=== PATIENT | female | born 1980 | race Caucasian/White ===

== ENCOUNTER 2023-12-04 08:47 | Inpatient (IN) | payer BC, SELFPAY ==
[2023-12-04] VITALS (11 sets, daily range): BP systolic 103–121; BP diastolic 55–84; PULSE 59–80; RESP 14–18; TEMP 36.3–37.3; O2SAT 96–100; BMI 23.6; BMI 25.1
--- NOTE | ~2023-12-04 | CT_ITS ---
EXAMINATION: CT ABDOMEN AND PELVIS WITH CONTRAST CLINICAL INFORMATION: Loose stool, pain, and distention aerated history of previous surgery. COMPARISON: Previous CT of the abdomen and pelvis most recent November 2019 TECHNIQUE: Multidetector volumetric images were obtained from the superior aspect of the liver through the pubic symphysis following administration 85 mL of Omnipaque 350 intravenous contrast. Sagittal and coronal reformatted images were obtained on the technologist's workstation. Oral contrast: Yes This CT examination was performed using dose optimization techniques as appropriate, variously including the following: *Automated exposure control *Adjustment of mA and/or kV according to patient size (this includes techniques or standardized protocols for targeted exams where dose is matched to indication/reason for exam; i.e. extremities or head) *Use of iterative reconstruction technique DLP: 388 mGy-cm FINDINGS: LUNG BASES: The visualized lung bases are unremarkable. LIVER, GALLBLADDER, AND BILIARY TREE: The liver is normal in size, shape, and attenuation. No focal hepatic lesion or biliary ductal dilatation is present. The gallbladder is unremarkable with no evidence of radiopaque gallstones, gallbladder wall thickening, or obvious pericholecystic inflammatory changes. PANCREAS: Unremarkable. SPLEEN: Unremarkable. ADRENAL GLANDS: Unremarkable. KIDNEYS AND URETERS: The kidneys are normal in size, shape, and attenuation. No hydronephrosis, hydroureter, or calculi seen. No perinephric stranding. BLADDER: Unremarkable. GASTROINTESTINAL TRACT: Postsurgical changes to the sigmoid colon. There is question of mild wall thickening of the distal colon and rectum/oh proctocolitis. The small and large bowel are otherwise unremarkable. The base of the appendix is normal in caliber and filled with air. The tip of the appendix appears dilated measuring up to 1.3 cm does not contain 8 year and is high in attenuation or enhancing. There is a small amount of surrounding fluid. Appearance is questionable for appendicitis of the tip of the appendix versus enhancing mass. ABDOMINAL WALL: No significant hernia is appreciated. LYMPH NODES: Normal. VASCULAR: Unremarkable. PELVIC VISCERA: There is a small amount of fluid in the pelvis. Uterus and adnexa appear unremarkable. OSSEOUS STRUCTURES: Degenerative changes of the spine. CT/CT abdomen pelvis w IV con IMPRESSION: Abnormal appearance to the tip of the appendix. Small amount of fluid surrounding the appendix and in the pelvis. Question appendicitis of the tip of the appendix versus enhancing mass. Question mild wall thickening of the distal colon and rectum/proctocolitis. Postsurgical changes to the sigmoid colon. Fleischner guidelines were followed. Findings will be communicated by the [place] workflow flight inspector.
--- NOTE | 2023-12-04 09:17 | ED_ITS ---
HPI - Abdominal Pain General Chief Complaint: Abdominal Pain Stated Complaint: intestinal problems Time Seen by Provider: 12/04/23 09:00 Source: patient and old records reviewed Mode of arrival: ambulatory Limitations: no limitations History of Present Illness ED Provider: JERSEY ARZOLA narrative: 43 yo female with PMH of sigmoid volvulus back in 2019 that was initially treated here with gastrograffin enema and she was discharged home she notes she went to [facility] after discharge and was brought to the OR after presenting to the ED and was treated with surgery and had 8cm resection of colon. She has done well since then until 4 days ago with nausea, loose stools, distention and pain. She is worried as it feels the same to her prior episode. She has not been on any antibiotics recently MD elicited complaint: abdominal pain Pertinent past history: other (colon resection 2019 for sigmoid volvulua) Onset (ago): day(s) (4) Pain Consistency: intermittent Location: suprapubic Severity: severe Quality: cramping and aching Radiation: none Migration to: no migration Exacerbating factors: eating and movement Relieving factors: nothing Context: history of similar episodes Associated symptoms: nausea and other (loose stools) Related Data Allergies Allergy/AdvReac Type Severity Reaction Status Date / Time cefaclor [From CECLOR] Allergy Unknown HIVES Verified 12/04/23 08:54 ceclor Allergy Unknown hives Uncoded 10/29/16 00:00 Review of Systems Review of Systems Constitutional : No Weight loss, No Fever, No Chills ENT/Mouth : No sore throat, No Rhinorrhea Eyes: No Swelling, No Redness Cardiovascular : No Chest Pain, No SOB, No Edema Respiratory : No Cough, No Sputum, No Wheezing Gastrointestinal : Positive Nausea, no Vomiting, no Diarrhea, positive abdominal Pain, No Hematochezia, No Melena Genitourinary : No Dysuria, No Urinary Frequency, No Hematuria, No Urgency Musculoskeletal : No joint pain, No Myalgias, No Joint Swelling Skin : No Skin Lesions, No rash Neuro : No Weakness, No Numbness, No Dizziness, No Headache Psych : No Anxiety/Panic, No Depression All other systems reviewed and are negative. [facility] Past Medical History Attestation statement: The following information was validated with the patient. Source: old records reviewed Medical History (Updated 12/04/23 @ 13:14 by Justine Franklin DO) C. difficile colitis IBS (irritable bowel syndrome) Sigmoid volvulus Surgical History S/P colon resection Social History Social History (Updated 12/04/23 @ 09:23 by Justine Franklin DO) Patient Tobacco Use Status: Never used Tobacco Advance Directives: No Advance Directives Information Provided: Yes Do you have a plan to hurt others: No Plan Physical Exam ED Vital Signs: Vital Signs - 24 hr 12/04/23 08:51 12/04/23 11:48 Temperature 97.7 F Pulse Rate 67 68 Respiratory Rate 18 16 Blood Pressure 121/84 114/80 Pulse Oximetry 100 100 Oxygen Delivery Method Room Air Room Air BMI result Body Mass Index 23.6 Appearance: Alert. Oriented X3. No acute distress. Eyes: Pupils equal, round and reactive to light. ENT: Pharynx normal. Neck: Normal inspection. Neck supple. CVS: Normal heart rate and rhythm. Pulses normal. Respiratory: No respiratory distress. Breath sounds normal. Abdomen: Soft and lower abdominal distention with ttp no rebound but she is very ttp Skin: Skin warm and dry. Normal skin color. Normal skin turgor. Extremities: No lower extremity edema. No calf ttp Neuro: Oriented X 3. No motor deficit. No sensory deficit. Medical Decision Making Medical Decision Making [facility] Narrative: 43 yo female with PMH of sigmoid volvulus back in 2019 s/p colon resection at [facility] here with c/o 4 days of nausea, bloating, loose stools and concerned she had a recurrence at this time given symptoms will need labs, CT scan with contrast to evaluate for inflammation, obstruction, mass, will refer to surgery and consult once imaging back. IVF, zofran and toradol ordered. Differential Diagnosis Differential Diagnoses: The differential diagnosis associated with the presentation includes IBS, SBO, ileus Admission/Observation Consideration of admission/observation: Escalation of care including admission/observation considered admit per Dr. Schmitz Consult Healthcare Provider Management of the patient was discussed with: House Detective message sent to Dr. Schmitz Lab Data [facility] Lab Attestation statement: I reviewed the patient's lab results. 12/04/23 09:15 12/04/23 09:15 Labs: Lab Results 12/04/23 Range/Units 09:15 WBC 4.6 L (4.8-10.8) X10*3/uL RBC 4.75 (4.20-5.50) X10*6/uL Hgb 13.5 (12.0-16.0) g/dl Hct 40.8 (37.0-47.0) % MCV 85.9 (80.0-98.0) fL MCH 28.4 (27.0-33.0) pg MCHC 33.1 (31.0-35.0) g/dl RDW 13.9 (11.0-16.0) % Plt Count 266 (160-400) X10*3/uL MPV 10.4 (9.4-12.3) fL Immature Gran % (Auto) 0.2 (0.0-0.4) % Neut % (Auto) 56.5 (45-73) % Lymph % (Auto) 27.8 (20-40) % Dolores % (Auto) 11.1 H (2-11) % Eos % (Auto) 3.5 (0-4) % Baso % (Auto) 0.9 (0-2) % Lymph # (Auto) 1.3 (1.2-4.9) X10*3/uL Dolores # (Auto) 0.5 (0.1-1.2) X10*3/uL Eos # (Auto) 0.2 (0.0-0.4) X10*3/uL Baso # (Auto) 0.0 (0.0-0.2) X10*3/uL Abs Immat Gran (auto) 0.01 (0.00-0.03) X10*3/uL Absolute Neuts (auto) 2.6 (2.0-8.3) x10*3/uL Absolute Nucleated RBC 0.000 (0.0-0.012) X10*3/uL Nucleated RBC % (auto) 0.0 (0.0-0.2) /100WBC Sodium 140 (135-145) mmol/L Potassium 4.1 (3.3-5.1) mmol/L Chloride 106 (96-108) mmol/L Carbon Dioxide 28 (22-29) mmol/L Anion Gap 10 L (12-20) BUN 15 (9-16) mg/dL Creatinine 0.68 (0.5-1.4) mg/dL Estim Creat Clear Calc 91.1 Estimated GFR > 60 Random Glucose 93 (60-115) mg/dL Lactic Acid 0.8 (0.5-2.0) mmol/L Calcium 8.8 (8.4-10.2) mg/dL Magnesium 2.1 (1.6-2.6) mg/dL Total Bilirubin 0.6 (0.0-1.0) mg/dL Direct Bilirubin 0.2 (0.0-0.5) mg/dL AST 22 (5-31) U/L ALT 19 (0-31) U/L Alkaline Phosphatase 42 (39-117) U/L Total Protein 6.5 (6.5-8.0) g/dL Albumin 3.9 (3.5-5.0) g/dL Lipase 38 (8-78) U/L Beta HCG, Quant < 2 mIU/mL Independent Interpretation I performed an independent interpretation of an: CT Scan Radiology Impression Discussion of test interpretation with radiology: I have reviewed the radiologist's reading. External Record Review External record reviewed: Inpatient record Medications Administered Generic Name Dose Route Start Last Admin Trade Name Freq PRN Reason Stop Dose Admin Sodium Chloride 1,000 mls @ 100 mls/hr 12/04/23 11:45 12/04/23 11:40 Ns IVCONT 100 mls/hr .Q10H JEAN-PIERRE Administration Discontinued Medications Generic Name Dose Route Start Last Admin Trade Name Freq PRN Reason Stop Dose Admin Sodium Chloride 1,000 mls @ 999 mls/hr 12/04/23 09:13 12/04/23 10:30 Ns IV 12/04/23 10:13 Infused .Q1H1M ONE Infusion Iohexol 85 ml 12/04/23 10:22 12/04/23 10:22 Iohexol 350 Mg/Ml 100 Ml Infus..Btl IV 12/04/23 10:23 85 ml ONCE ONE Administration Ketorolac Tromethamine 15 mg 12/04/23 09:13 12/04/23 09:22 Ketorolac Tromethamine 15 Mg/Ml Vial IVPUSH 12/04/23 09:14 15 mg ONCE ONE Administration Ondansetron HCl 4 mg 12/04/23 09:13 12/04/23 09:21 Ondansetron Hcl 4 Mg/2 Ml Vial IVPUSH 12/04/23 09:14 4 mg ONCE ONE Administration Discharge Plan Discharge Clinical Impression: Acute appendicitis Patient Disposition: Admitted As Inpatient Print Language: Rwandan
[2023-12-04 09:19] LABS: MANUAL DIFF FLAG NO
[2023-12-04 09:21] LABS: Basophils Percent Auto 0.9 % (0-2); Eosinophils Absolute Auto 0.2 X10*3/uL (0.0-0.4); Eosinophils Percent Auto 3.5 % (0-4); Hematocrit 40.8 % (37.0-47.0); Hemoglobin 13.5 g/dl (12.0-16.0); Imm Gran Abs Auto 0.01 X10*3/uL (0.00-0.03); Imm Gran Pct Auto 0.2 % (0.0-0.4); Lymphocytes Absolute Auto 1.3 X10*3/uL (1.2-4.9); Lymphocytes Percent Auto 27.8 % (20-40); Mean Corpuscular HGB Conc 33.1 g/dl (31.0-35.0); Mean Corpuscular Hemoglobin 28.4 pg (27.0-33.0); Mean Corpuscular Volume 85.9 fL (80.0-98.0); Mean Platelet Volume 10.4 fL (9.4-12.3); Monocytes Absolute Auto 0.5 X10*3/uL (0.1-1.2); Monocytes Percent Auto 11.1 % (2-11); Neutrophils Absolute Auto 2.6 x10*3/uL (2.0-8.3); Neutrophils Percent Auto 56.5 % (45-73); Platelet Count 266 X10*3/uL (160-400); Red Blood Count 4.75 X10*6/uL (4.20-5.50); Red Cell Distribution Width 13.9 % (11.0-16.0); White Blood Count 4.6 X10*3/uL (4.8-10.8)
[2023-12-04] MEDS: ondansetron HCL 4 MG/2 ML VIAL IVPUSH (09:21)
[2023-12-04] MEDS: Ketorolac Tromethamine 15 MG/ML VIAL IVPUSH (09:22)
[2023-12-04] MEDS: 0.9 % Sodium Chloride 1,000 ML 999 ML IV (09:22)
[2023-12-04 09:41] LABS: Lactic Acid 0.8 mmol/L (0.5-2.0)
[2023-12-04 09:52] LABS: Alanine Aminotransferase 19 U/L (0-31); Albumin Level 3.9 g/dL (3.5-5.0); Alkaline Phosphatase 42 U/L (39-117); Anion Gap 10 (12-20); Aspartate Amino Transferase 22 U/L (5-31); Bilirubin Direct 0.2 mg/dL (0.0-0.5); Bilirubin Total 0.6 mg/dL (0.0-1.0); Blood Urea Nitrogen 15 mg/dL (9-16); Calcium 8.8 mg/dL (8.4-10.2); Carbon Dioxide 28 mmol/L (22-29); Chloride 106 mmol/L (96-108); Creatinine Clr Calc Pharmacy 91.1; Estimated Glomerular Filt Rate > 60; Glucose Random 93 mg/dL (60-115); Lipase 38 U/L (8-78); Magnesium 2.1 mg/dL (1.6-2.6); Potassium 4.1 mmol/L (3.3-5.1); Sodium 140 mmol/L (135-145); Total Protein 6.5 g/dL (6.5-8.0)
[2023-12-04 10:04] LABS: HCG Quantitative < 2 mIU/mL
[2023-12-04] MEDS: iohexoL 350 MG/ML 100 ML INFUS..BTL 85 ML IV (10:22)
[2023-12-04] MEDS: 0.9 % Sodium Chloride 1,000 ML 100 ML IVCONT (11:40)
--- NOTE | 2023-12-04 13:05 | P.HPGS_ITS ---
History of Present Illness History of Present Illness Date of Service: 12/04/23 Chief complaint: Abdominal pain right lower quadrant Narrative: Shell Blevins is a 43 year old female presenting with complaints of abdominal pain in the lower abdomen. She has a prior history of a sigmoid volvulus and has previously undergone a laparoscopic colectomy following this volvulus Approximally 3 years ago at [facility]. She presents today with pain mainly in the right lower quadrant which he thought was similar to her prior pain and was actually concerned about a repeat volvulus. Workup in the emergency department revealed a normal WBC. CT abdomen and pelvis revealed possible inflammatory changes suggestive of colitis on the left side however the appendix was noted to be enlarged and inflamed at the tip suggestive of appendicitis. She denies nausea, vomiting, fever or chills. Review of Systems Review of Systems: Yes all other systems are reviewed and are negative Constitutional: Constitutional: Denies chills and Denies fever(s) Cardiovascular: Cardiovascular: Denies chest pain and Denies irregular heart rhythm Respiratory: Respiratory: Denies chest congestion, Denies cough and Denies wheezing Gastrointestinal: Gastrointestinal: Reports as per HPI, Reports abdominal pain, Reports loose stools, Denies nausea and Denies vomiting Allergic/Immunologic: Allergic/Immunologic: Denies wheezing PMFSH Past Medical History Medical History (Updated 12/04/23 @ 13:09 by Jose Cruz Schmitz MD) C. difficile colitis IBS (irritable bowel syndrome) Sigmoid volvulus Surgical History Surgical History S/P colon resection Social History Social History (Updated 12/04/23 @ 09:23 by Justine Franklin DO) Patient Tobacco Use Status: Never used Tobacco Advance Directives: No Advance Directives Information Provided: Yes Do you have a plan to hurt others: No Plan Meds Allergies Allergy/AdvReac Type Severity Reaction Status Date / Time cefaclor [From CECLOR] Allergy Unknown HIVES Verified 12/04/23 08:54 ceclor Allergy Unknown hives Uncoded 10/29/16 00:00 Active Medications: Current Medications Sodium Chloride (Ns) 1,000 mls @ 100 mls/hr IVCONT .Q10H JEAN-PIERRE Last Admin: 12/04/23 11:40 Dose: 100 mls/hr Physical Exam Vital Signs: Vital Signs: Last Vital Signs Temp 97.7 F 12/04/23 08:51 Pulse 68 12/04/23 11:48 Resp 16 12/04/23 11:48 BP 114/80 12/04/23 11:48 Pulse Ox 100 12/04/23 11:48 O2 Del Method Room Air 12/04/23 11:48 BMI result Body Mass Index 23.6 Const: General: cooperative and no acute distress Nutritional Appearance: well nourished Orientation/consciousness: patient oriented x3 Limitations: no limitations HEENT: Head: Yes normocephalic and Yes atraumatic Ears: hearing grossly normal bilaterally Resp: Effort & Inspection: normal respiratory effort, no audible wheezes, no cough and no respiratory distress Cardio: Jugular venous distension: no JVD GI: Inspection: Yes normal to inspection Palpation (GI): Soft to palpation, Tenderness to palpation present (GI) in the RLQ and at McBurney's point; Sterling's sign negative, no guarding and not rigid Percussion: Yes normal to percussion Auscultation: normal bowel sounds Rectal Exam - Female: deferred Skin: Other: Warm, dry, no rash Neuro: General: patient oriented x3 Extrem: General: Yes no clubbing, cyanosis or edema Results Results Labs: Short CBC 12/04/23 Range/Units 09:15 WBC 4.6 L (4.8-10.8) X10*3/uL Hgb 13.5 (12.0-16.0) g/dl Hct 40.8 (37.0-47.0) % Plt Count 266 (160-400) X10*3/uL BMP 12/04/23 09:15 Sodium 140 Potassium 4.1 Chloride 106 Carbon Dioxide 28 BUN 15 Creatinine 0.68 Calcium 8.8 Liver Function 12/04/23 Range/Units 09:15 Total Bilirubin 0.6 (0.0-1.0) mg/dL Direct Bilirubin 0.2 (0.0-0.5) mg/dL AST 22 (5-31) U/L ALT 19 (0-31) U/L Alkaline Phosphatase 42 (39-117) U/L Albumin 3.9 (3.5-5.0) g/dL Assessment and Plan (1) Acute appendicitis: Qualifiers: Acute appendicitis type: unspecified acute appendicitis type Qualified Code(s): K35.80 - Unspecified acute appendicitis Status: Acute Plan 43-year-old female patient with recent onset of abdominal pain in the right lower quadrant found to be tender in the right lower quadrant. Workup revealed a normal WBC however CT abdomen and pelvis revealed a dilated appendiceal tip suggestive of a appendicitis. We discussed the options of treatment with antibiotics verses laparoscopic possible open appendectomy. After discussion of the procedure, risks, and alternatives, she consents to a laparoscopic or possible open appendectomy. She has been added onto the operative schedule for today. Quality Stroke Does the patient have a stroke diagnosis?: No VTE Prior VTE?: No VTE Risk Level:: Surgical - low VTE Device Contraindication: N/A - Device Ordered VTE Drug Contraindication: Treatment Not Indicated Procedures Date of Service Date of Service: 12/04/23
[2023-12-04] MEDS: Piperacillin Sodium/Tazobactam 3.375 GM in 0.9 % Sodium Chloride 50 ML IV (13:39)
--- NOTE | 2023-12-04 13:42 | HO.ANESPROP2 ---
[facility] Active Problems Active Problems: All Active Problems Acute appendicitis (Acute) Past Medical History Medical History C. difficile colitis IBS (irritable bowel syndrome) Sigmoid volvulus Surgical History Surgical History S/P colon resection History of Problems with Anesthesia: No Social History Social History Patient Tobacco Use Status: Never used Tobacco Second Hand Smoke Exposure: No Use of substances other than those prescribed or required for medical reasons: No Are you DNR?: No Advance Directives: No Advance Directives Information Provided: Yes Advance Directives on File: No Do you have a plan to hurt others: No Plan Meds Allergies Allergy/AdvReac Type Severity Reaction Status Date / Time cefaclor [From CECLOR] Allergy Unknown HIVES Verified 12/04/23 08:54 ceclor Allergy Unknown hives Uncoded 10/29/16 00:00 Active Medications: Current Medications Hydromorphone HCl (Hydromorphone Hcl 0.5 Mg/0.5 Ml Syringe) 0.5 mg IVPUSH Q3H PRN; Protocol PRN Reason: Pain, Severe (Pain Scale 7-10) Sodium Chloride (Ns) 1,000 mls @ 100 mls/hr IVCONT .Q10H JEAN-PIERRE Last Admin: 12/04/23 11:40 Dose: 100 mls/hr Lactated Ringer's (Lr) 1,000 mls @ 100 mls/hr IVCONT .Q10H JEAN-PIERRE Acetaminophen (Ofirmev) 1,000 mg in 100 mls @ 400 mls/hr IV Q6H [facility] Stop: 12/05/23 07:29 Piperacillin Sod/Tazobactam (Sod 3.375 gm/ Sodium Chloride) 50 mls @ 100 mls/hr IV Q6H JEAN-PIERRE Last Admin: 12/04/23 13:39 Dose: 100 mls/hr Ondansetron HCl (Ondansetron Hcl 4 Mg/2 Ml Vial) 4 mg IVPUSH QID PRN PRN Reason: Nausea Exam Height,Weight and Vital Signs: Height 5 ft 4 in Weight 62.4 kg Last Vital Signs Temp 97.7 F 12/04/23 08:51 Pulse 68 12/04/23 11:48 Resp 16 12/04/23 11:48 BP 114/80 12/04/23 11:48 Pulse Ox 100 12/04/23 11:48 O2 Del Method Room Air 12/04/23 11:48 Pertinent Lab Results Pertinent Lab Results: Laboratory Tests 12/04/23 09:15 WBC 4.6 L RBC 4.75 Hgb 13.5 Hct 40.8 MCV 85.9 MCH 28.4 MCHC 33.1 RDW 13.9 Plt Count 266 MPV 10.4 Immature Gran % (Auto) 0.2 Neut % (Auto) 56.5 Lymph % (Auto) 27.8 Cecil % (Auto) 11.1 H Eos % (Auto) 3.5 Baso % (Auto) 0.9 Lymph # (Auto) 1.3 Cecil # (Auto) 0.5 Eos # (Auto) 0.2 Baso # (Auto) 0.0 Abs Immat Gran (auto) 0.01 Absolute Neuts (auto) 2.6 Absolute Nucleated RBC 0.000 Nucleated RBC % (auto) 0.0 Sodium 140 Potassium 4.1 Chloride 106 Carbon Dioxide 28 Anion Gap 10 L BUN 15 Creatinine 0.68 Estim Creat Clear Calc 91.1 Estimated GFR > 60 Random Glucose 93 Lactic Acid 0.8 Calcium 8.8 Magnesium 2.1 Total Bilirubin 0.6 Direct Bilirubin 0.2 AST 22 ALT 19 Alkaline Phosphatase 42 Total Protein 6.5 Albumin 3.9 Lipase 38 Beta HCG, Quant < 2 Airway Mallampati Class: II TM Dist: >3cm Neck ROM: Full Loose/Missing/Broken Teeth: No Heart: RRR Lungs: CTA Assessment and Plan Assessment Anesthesia Assessment: Anesthesia Plan Discussed and Chart Reviewed Final Anesthetic Review History of Problems with Anesthesia: No NPO: Yes ASA Class: II and Emergency Final Preanesthetic Review: Meds/Allgs Chart Reviewed, Consent Obtained/Reviewed and Anes Risks/Benef Reviewed Patient Risk: Low Procedure Risk: Low Anesthetic Plan Anesthetic Plan: GA Disposition: Standard PACU
--- NOTE | 2023-12-04 14:18 | PC.NURSE ---
patient removed earrings and placed in blue denture cup with belongings.
--- NOTE | 2023-12-04 15:23 | P.OP_ITS ---
Operative Note Operative Note Date of Service: 12/04/23 Narrative: Preoperative diagnosis: Acute appendicitis Postoperative diagnosis: Same Procedure: Laparoscopic appendectomy Surgeon: Jose Cruz Schmitz MD Electronic Musical Instrument Repairer:none Anesthesia: General endotracheal Indications for procedure:43 year ol female patient presenting with right lower quadrant abdominal pain found on CT to have thickened tip of the appendix suggestive of appendicitis or possible mass on the tip appendix. Her WBC was normal. On examination she has tender in the right lower quadrant over McBurney's point Operative findings: Normal base of the appendix however the tip of the appendix did reveal whitish nodule Specimen: appendix Estimated blood loss: less than2 mls Complications: none Procedure details: Patient was brought to the OR and placed in a supine position. After administering general anesthesia the patient's abdomen was prepped with ChloraPrep and draped in a sterile fashion. A surgical time-out was called and consent confirmed. Patient received preoperative antibiotics and Venodyne boots were in place. Local anesthesia consisting of 0.5% Sensorcaine without epinephrine was infiltrated in periumbilical region. A 5 mm incision was made below the umbilicus and carried down through subcutaneous tissue. A Veress needle was then inserted while elevating abdominal cavity with towel clips. After a positive drop test the abdomen was insufflated to a pressure of 15 mm of mercur y. The Veress needle was removed and a 5 mm trocar inserted. The camera was then inserted in the abdomen explored. A 2nd 5 mm trocars placed in the lower midline. A 12 mm trocar was then placed in the left lower quadrant. The patient was then placed in a Trendelenburg position and rotated to the left. The appendix was identified in the right lower quadrant and brought up using blunt dissecting clamps. The mesentery of the appendix was then divided using the LigaSure. The appendiceal artery was cauterized and divided using the LigaSure. Dissection was continued down to the base of the cecum. An Endo-PAIGE stapler with a purple reload was then used to divide the appendix at the base with the cecum. The appendix was then placed in Endo-Catch bag and brought out through the left lower quadrant incision. The abdomen was then irrigated with saline solution and suctioned dry. Wounds were checked for hemostasis. CO2 was then evacuated from the abdominal cavity and all trocars removed. Fascia was closed in the left lower quadrant incision using a [id number] 0 Polysorb suture. Skin was closed at all incisions using a subcuticular 4-0 Polysorb suture. Steri-Strips 2 x 2 gauze and Tegaderm were then applied. The patient tolerated the procedure well. Sponge, instrument, needle counts reported as correct. The patient was transferred to PACU in stable condition.
[2023-12-04] MEDS: Dextrose 5 % and Lactated Ring 1,000 ML 125 ML IVCONT ×2 (16:51→23:41)
[2023-12-04] MEDS: Acetaminophen 1,000 MG/100 ML PIGGYBACK 400 MG IV (18:10)
--- NOTE | 2023-12-04 21:12 | PHA.MEDREC ---
Addendum entered by Adrienne Morrow RPh 12/04/23 21:22: medications not taken today per patient. Original Note: Pharmacy Consult ? Medication Reconciliation Pharmacy has completed the medication reconciliation. Spoke to pt at bedtime, they were able to tell us their home meds and confirmed that they took them today before coming in.
[2023-12-04] MEDS: oxyCODONE HCl Immed Release 5 MG TABLET PO (23:40)
[2023-12-05] MEDS: Acetaminophen 1,000 MG/100 ML PIGGYBACK 400 MG IV ×2 (01:33→06:36)
[2023-12-05 03:20] VITALS: BP 110/53; PULSE 57; RESP 16; TEMP 36.2; O2SAT 99
[2023-12-05] MEDS: Dextrose 5 % and Lactated Ring 1,000 ML 125 ML IVCONT (07:47)
--- NOTE | 2023-12-05 08:34 | P.PNGS_ITS ---
Subjective Subjective Date of Service: 12/05/23 Interval history: Patient feels much improved and denies significant abdominal pain. She was able to eat without nausea or vomiting. She feels ready for discharge to home. Physical Exam 2 Vital Signs: Vital Signs: Last Vital Signs Temp 97.1 F 12/05/23 03:20 Pulse 57 12/05/23 03:20 Resp 16 12/05/23 03:20 BP 110/53 L 12/05/23 03:20 Pulse Ox 99 12/05/23 03:20 O2 Del Method Room Air 12/05/23 03:20 BMI result Body Mass Index 25.1 Const: General: no acute distress Nutritional Appearance: well nourished Orientation/consciousness: patient oriented x3 Resp: Effort & Inspection: normal respiratory effort GI: Other: Soft and nondistended, trocar incisions are clean, dry and intact. Neuro: General: patient oriented x3 Extrem: Other: No edema Objective Data Active Medications Calcium Carbonate (Calcium Carbonate 750 Mg Tab.Chew) 750 mg PO Q4H PRN PRN Reason: Heartburn Hydromorphone HCl (Hydromorphone Hcl 0.5 Mg/0.5 Ml Syringe) 0.5 mg IVPUSH Q3H PRN; Protocol PRN Reason: Pain, Severe (Pain Scale 7-10) Dextrose/Lactated Ringer's (D5lr) 1,000 mls @ 125 mls/hr IVCONT .Q8H [facility] Last Admin: 12/05/23 07:47 Dose: 125 mls/hr Documented By: ESCOBAR Magnesium Hydroxide (Milk Of Magnesia 30 Ml Oral.Susp) 30 ml PO DAILY PRN PRN Reason: Constipation Ondansetron HCl (Ondansetron Hcl 4 Mg/2 Ml Vial) 4 mg IVPUSH QID PRN PRN Reason: Nausea Oxycodone HCl (Oxycodone Hcl Immed Release 5 Mg Tablet) 5 mg PO Q6H PRN PRN Reason: Pain, Moderate(Pain Scale 4-6) Last Admin: 12/04/23 23:40 Dose: 5 mg Documented By: QUOC Sodium Chloride (0.9 % Sodium Chloride Flush 3 Ml Syringe) 3 ml IVFLUSH QSHIFT [facility] Last Admin: 12/05/23 07:22 Dose: Not Given Documented By: ESCOBAR Non-Admin Reason: IV Running Labs 12/04/23 09:15 12/04/23 09:15 Labs: Laboratory Results - last 24 hr 12/04/23 09:15 MCV 85.9 MCH 28.4 MCHC 33.1 RDW 13.9 Plt Count 266 MPV 10.4 Immature Gran % (Auto) 0.2 Neut % (Auto) 56.5 Lymph % (Auto) 27.8 [place] % (Auto) 11.1 H Eos % (Auto) 3.5 Baso % (Auto) 0.9 Lymph # (Auto) 1.3 [place] # (Auto) 0.5 Eos # (Auto) 0.2 Baso # (Auto) 0.0 Abs Immat Gran (auto) 0.01 Absolute Neuts (auto) 2.6 Absolute Nucleated RBC 0.000 Nucleated RBC % (auto) 0.0 Anion Gap 10 L Estim Creat Clear Calc 91.1 Estimated GFR > 60 Random Glucose 93 Lactic Acid 0.8 Calcium 8.8 Magnesium 2.1 Total Bilirubin 0.6 Direct Bilirubin 0.2 AST 22 ALT 19 Alkaline Phosphatase 42 Total Protein 6.5 Albumin 3.9 Lipase 38 Beta HCG, Quant < 2 Procedures Date of Service Date of Service: 12/05/23 Progress Note: A&P Assessment and plan (1) Acute appendicitis: Status: Acute Plan 43-year-old female patient with complaints of lower abdominal pain found on CT to have a thickened tip of the appendix. She underwent a laparoscopic appendectomy on 12/04/2023. She tolerated the procedure well. Operative findings were consistent with a thickened tip of the appendix located in a retrocecal location. Her wounds are clean, dry and intact. She is ready for discharge to home. She will follow-up in the office in approximately 1 week. I recommended no heavy lifting for 2 weeks. She is welcome to call sooner for any fever, chills, increased abdominal pain or other concerns. Time Spent With Patient Time: Total time managing care of this patient today ____ minutes. Quality Stroke Does the patient have a stroke diagnosis?: No VTE Prior VTE?: No VTE Risk Level:: Surgical - low VTE Device Contraindication: N/A - Device Ordered VTE Drug Contraindication: Treatment Not Indicated
--- NOTE | 2023-12-05 08:36 | P.DS_ITS ---
DS: Providers Provider Date of Service: 12/05/23 Date of admission: 12/04/23 13:01 Date of discharge: 12/05/23 Primary care physician: Patrica Physician Admitting clinician: Jose Cruz Schmitz Discharging clinician: Jose Cruz Schmitz DS: Diagnosis Discharge Diagnosis (1) Acute appendicitis: Status: Acute DS: Summary Hospital Course Hospital Course: Shell Blevins is a 43 year old female presenting with complaints of abdominal pain in the lower abdomen. She has a prior history of a sigmoid volvulus and has previously undergone a laparoscopic colectomy following this volvulus approximally 3 years ago at [facility]. She presented on 12/04/2023 with pain mainly in the right lower quadrant which was thought to be similar to her prior pain and was actually concerned about a repeat volvulus. Workup in the emergency department revealed a normal WBC. CT abdomen and pelvis revealed possible inflammatory changes suggestive of colitis on the left side however the appendix was noted to be enlarged and inflamed at the tip suggestive of appendicitis. She denies nausea, vomiting, fever or chills. She was given the option of either non operative management with IV antibiotics verses laparoscopic appendectomy. The decision was made to proceed with laparoscopic appendectomy which was performed on 12/04/2023. Operative findings revealed a retrocecal appendix with the tip of the appendix revealing an inflammatory mass. No other inflammatory changes were identified. She underwent an uneventful appendectomy. The base of the appendix was normal. On postoperative day 1, patient was reasonably comfortable on oral pain medications. She denied nausea, vomiting, fever or chills. She was able to tolerate a regular diet without nausea or vomiting. She is ambulating independently. Wounds were found to be clean, dry and intact. Patient is to be discharged to home on 12/05/2023. Discharge instructions were to avoid any lifting greater than 10 lb for 2 weeks. She may ambulate and take stairs as necessary. She may resume a normal diet. I recommended she returned to the office in approximately 1 week for wound check. She is welcome to call sooner for any new concerns. Time spent discussing smoking cessation with patient: 3 to 10 minutes Status at Discharge Functional status at discharge: independent ambulation Overall status at discharge: patient is back to baseline Time Attestation Total time managing care of this patient today: 20 mintues. Discharge Coordination Time (in mins): 20 Quality: Safe Use of Opioids Does Pt have an Active Cancer Diagnosis on the Problem List?: No Quality: Stroke Does the patient have a stroke diagnosis?: No Physical Exam Vital Signs: Vital Signs: Last Vital Signs Temp 97.1 F 12/05/23 03:20 Pulse 57 12/05/23 03:20 Resp 16 12/05/23 03:20 BP 110/53 L 12/05/23 03:20 Pulse Ox 99 12/05/23 03:20 O2 Del Method Room Air 12/05/23 03:20 BMI result Body Mass Index 25.1 Const: General: no acute distress Nutritional Appearance: well nourished Orientation/consciousness: patient oriented x3 Resp: Effort & Inspection: normal respiratory effort GI: Other: Soft and nondistended, trocar incisions are clean, dry and intact. Neuro: General: patient oriented x3 Extrem: Other: No edema DS: Data Data Completed and Pending Pending studies at discharge: Pending at discharge 12/04/23 15:06 Surgical [PTH] Routine Labs on day of discharge: Laboratory Results - last 24 hr 12/04/23 09:15 WBC 4.6 L RBC 4.75 Hgb 13.5 Hct 40.8 MCV 85.9 MCH 28.4 MCHC 33.1 RDW 13.9 Plt Count 266 MPV 10.4 Immature Gran % (Auto) 0.2 Neut % (Auto) 56.5 Lymph % (Auto) 27.8 [place] % (Auto) 11.1 H Eos % (Auto) 3.5 Baso % (Auto) 0.9 Lymph # (Auto) 1.3 [place] # (Auto) 0.5 Eos # (Auto) 0.2 Baso # (Auto) 0.0 Abs Immat Gran (auto) 0.01 Absolute Neuts (auto) 2.6 Absolute Nucleated RBC 0.000 Nucleated RBC % (auto) 0.0 Sodium 140 Potassium 4.1 Chloride 106 Carbon Dioxide 28 Anion Gap 10 L BUN 15 Creatinine 0.68 Estim Creat Clear Calc 91.1 Estimated GFR > 60 Random Glucose 93 Lactic Acid 0.8 Calcium 8.8 Magnesium 2.1 Total Bilirubin 0.6 Direct Bilirubin 0.2 AST 22 ALT 19 Alkaline Phosphatase 42 Total Protein 6.5 Albumin 3.9 Lipase 38 Beta HCG, Quant < 2 Discharge Plan Discharge Anticipated Discharge Date/Time: 12/05/23 08:31 Patient Disposition: Home, Self-Care Discharge Diagnosis: Acute appendicitis Referrals: Jose Cruz Schmitz MD [Physician] - 1 Week Physician,None [Primary Care Provider] - 1 Week Discharge Medications: New oxycodone 5 mg tablet 5 mg PO Q6H PRN (Reason: pain (scale score 7-10)) Qty: 15 0RF Rx Instructions: Partial Fill upon patient request. Continued dextroamphetamine-amphetamine 15 mg tablet 1 tab PO DAILY fluoxetine 20 mg capsule 40 mg PO DAILY Discharge Orders: Discharge Order (Routine); Ordered 12/05/23 Ordered By: Jose Cruz Schmitz Stand Alone Forms: Patient Portal Discharge page Print Language: Albanian Activity Restrictions/Additional Instructions: No lifting > 10 pounds for 2 weeks No driving for 3 days Ice to the incision x 24 hours After 24 hours, use warm compress or heating pad on low as needed Take Tylenol Extra-strength 1-2 tabs every 6 hours as needed Oxycodone every 6-8 hours as needed for pain Colace 100 mg every day as needed for constipation Remove dressing in 3 days Follow up in office in one week (call office at [phone] for appointment). Care Plan Goals: Return to normal activity and diet Health Concerns: Abdominal pain right lower quadrant Plan of Treatment: Laparoscopic appendectomy performed on 12/04/2023 Assessment: Acute appendicitis Patient Instructions: Laparoscopic Appendectomy (DC)
--- NOTE | 2023-12-05 16:07 | HO.POSTANES ---
Post Anesthesia Evaluation Post Anesthesia Evaluation Date of Service: 12/05/23 Anesthesia: General Endotracheal-GETA Mental Status: Awake Pain Control: Satisfactory Nausea/Vomiting: None Hydration: Adequate Anesthesia-Related Issues: No Anes. Related Issues
== END 2023-12-05 08:58 | disposition home or self-care (01) | DRG 234 ==
LOC: HO.ED 15:18 → HO.SSS 15:18 → HO.SSSA 15:19 → HO.S3 16:13
PROVIDERS: Admitting Provider Surgery; Emergency Provider Emergency Medicine; Visit Provider Surgery
PROC: 0DTJ4ZZ Resection of Appendix, Percutaneous Endoscopic Approach (ICD-10-PCS; CPT 44970; principal; 2023-12-04 14:10)
DX: K35.80 Unspecified acute appendicitis (principal); Z79.899 Other long term (current) drug therapy
CPT/HCPCS: 36415; 74177; 80048; 80076; 83605; 83690; 83735; 84702; 85025; 88304; 88341; 88342; 88360; 99284; J0131; J1100; J1885; J2250; J2405; J2543; J2704; J3010; Q9967

== ENCOUNTER → 2023-12-04 09:00 | Outpatient (BNV) | payer BC, SELFPAY | PROVIDERS: Emergency Provider Emergency Medicine; Visit Provider Surgery | DX: K35.80 Unspecified acute appendicitis (principal) | CPT/HCPCS: 44970; 99024; 99222 ==

== ENCOUNTER 2023-12-15 08:54 | Outpatient (AMB) | payer BC, SELFPAY ==
[2023-12-15 09:05] VITALS: BMI 25.1
--- NOTE | 2023-12-15 09:05 | MHC.OFFVIS ---
Vital Signs 12/15/23 09:05 Height 5 ft 4 in Weight 146 lb 6.191 oz BMI 25.1 Intake Visit Reasons: s/p appendectomy follow up Intake Note: This patient presents for a post-op assessment status post laparoscopic appendectomy. Patient c/o; reports LLQ incision is still sore, otherwise she feels well. 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 She tolerated the procedure well but does have some soreness at the left lower quadrant incision. She is eating well and denies any nausea, vomiting, fever or chills. She denies any flushing, sweating, increased heart rate or other symptoms of carcinoid syndrome. [facility] Medical History Carcinoid tumor of appendix Acute appendicitis C. difficile colitis IBS (irritable bowel syndrome) Sigmoid volvulus Surgical History History of laparoscopic appendectomy (12/05/23) S/P colon resection Social History Household Members: Children and None Housing: House Do you presently have visiting nurse or other home services: No Patient Tobacco Use Status: Never used Tobacco Second Hand Smoke Exposure: No Review of Systems Const All systems reviewed & are unremarkable except as noted in HPI and below Physical Exam Vital Signs: BMI result Body Mass Index 25.1 Const General: comfortable and no acute distress Nutritional Appearance: well nourished Orientation/consciousness: patient oriented x3 Resp Effort & Inspection: normal respiratory effort, no audible wheezes, no cough and no respiratory distress GI Other: Well-healed trocar incisions without hernia or infection. Inspection: Yes normal to inspection Palpation (GI): Soft to palpation, nontender and no guarding Neuro General: patient oriented x3 Extrem General: Yes no clubbing, cyanosis or edema Assessment & Plan Assessment & Plan (1) Carcinoid tumor of appendix: Code(s): D3A.020 - Benign carcinoid tumor of the appendix Category: Medical Qualifiers: Carcinoid tumor malignancy status: malignant Qualified Code(s): C7A.020 - Malignant carcinoid tumor of the appendix Plan 43-year-old female patient presenting following laparoscopic appendectomy, pathology of which revealed a tip carcinoid tumor, 2.1 cm in diameter with invasion into the mesentery. I provided a copy of the pathology report with the patient and review the treatment options. We discussed obtaining a preoperative MRI and discussed the need for right colectomy due to the size of the tumor and evidence of invasion. We also discussed the role for oncology once the results are known. I have requested an MRI and she will return following the MRI to review the results and discuss next steps. She expressed understanding and agrees with the plan. Orders: Orders MR abdomen wo/w con Today D3A.020 - Benign carcinoid tumor of the appendix Coding Level of Care Code Global (01883) Diagnoses Malignant carcinoid tumor of appendix C7A.020 Carcinoid tumor malignancy status: malignant
== END 2023-12-15 09:20 | disposition home or self-care (01) ==
PROVIDERS: Visit Provider Surgery
DX: C7A.020 Malignant carcinoid tumor of the appendix (principal)
CPT/HCPCS: 99024

== ENCOUNTER → 2023-12-15 08:54 | Outpatient (BNVA) | payer BC, SELFPAY | PROVIDERS: Visit Provider Surgery ==

== ENCOUNTER 2023-12-22 15:33 | Outpatient (REF) | payer BC, SELFPAY ==
--- NOTE | ~2023-12-22 | MR_ITS ---
EXAMINATION: MRI ABDOMEN WITH AND WITHOUT CONTRAST CLINICAL INFORMATION: D3A.020 - Benign carcinoid tumor of the appendix COMPARISON: 12/04/2023 CT scan TECHNIQUE: Multiple routine MRI sequences through the abdomen were obtained on a high-field 1.5Tesla MRI. Pre-and postcontrast images with 5 mL of Gadavist intravenous contrast were obtained. This included a dynamic contrast-enhanced technique. FINDINGS: Lung bases: The visualized lung bases are unremarkable. Liver: The liver is normal in size, shape, and signal. 0.7 cm very T2 bright probable hemangioma in the lateral right lobe the liver incidentally noted. No suspicious focal hepatic lesions seen. Specifically no suspicious arterial phase enhancing lesions or suspicious washout of contrast on later phases. No biliary ductal dilatation. Gallbladder: Gallbladder is unremarkable. No suspicious gallstones or filling defects. No gallbladder wall thickening or pericholecystic inflammatory changes. Pancreas: Pancreas is homogeneous in signal. No pancreatic ductal dilatation or obstruction. No peripancreatic inflammatory changes or fluid. Spleen: Unremarkable Adrenals: Unremarkable Kidneys: Kidneys are normal in size, shape, and signal. No suspicious renal mass lesion seen. No hydronephrosis or perinephric edema. Other: Evaluation the bowel is limited on MRI due to bowel motion artifact. Prominent amount stool seen within the cecum. Nonobstructed terminal ileum. I do not appreciate any suspicious mass lesion in the region of the likely previously resected appendix. Clinical correlation with the surgical history would be needed. On the prior CT scan, there is a small amount of fluid in the right lower quadrant. I do not appreciate any significant residual fluid or collection within the peritoneal space on the current MRI. No obvious bowel wall thickening. MR/MR abdomen wo/w con IMPRESSION: 1. I do not appreciate any suspicious mass lesion in the right lower quadrant in the expected region of the likely previously resected appendix. There is a prominent amount of stool within the cecum with no abnormal bowel wall thickening. No evidence for bowel obstruction. I do not appreciate any significant residual fluid or collection within the peritoneal space on the current study. 2. Incidental subcentimeter T2 bright likely hemangioma in the right lobe of the liver. No suspicious hepatic lesions.
[2023-12-22] MEDS: gadobutroL 7.5 ML VIAL IVPUSH (16:44)
== END 2023-12-22 15:34 | disposition home or self-care (01) ==
LOC: HO.MRI 15:33
PROVIDERS: Visit Provider Surgery
DX: D3A.020 Benign carcinoid tumor of the appendix (principal)
CPT/HCPCS: 74183; A9585

== ENCOUNTER → 2024-01-04 10:48 | Outpatient (BNV) | payer BC, SELFPAY | PROVIDERS: Admitting Provider Surgery; Visit Provider Internal Medicine | DX: R94.31 Abnormal electrocardiogram [ECG] [EKG] (principal) | CPT/HCPCS: 93010 ==

== ENCOUNTER 2024-01-11 07:49 | Inpatient (IN) | payer BC, SELFPAY ==
--- NOTE | 2024-01-04 | ECG_ITS ---
Test Reason : PREOP Blood Pressure : / mmHG Vent. Rate : 062 BPM Atrial Rate : 062 BPM P-R Int : 124 ms QRS Dur : 084 ms QT Int : 438 ms P-R-T Axes : 009 052 034 degrees QTc Int : 444 ms Normal sinus rhythm with sinus arrhythmia Septal infarct , age undetermined ; can be related to body habitus/lead placement Abnormal ECG No previous ECGs available Referred By: Yenni Abbott Electronically Signed By:CHERYL DEAN
[2024-01-04 10:16] VITALS: BP 124/77; PULSE 67; RESP 20; O2SAT 100; BMI 23.9
[2024-01-11] VITALS (31 sets, daily range): BP systolic 98–122; BP diastolic 56–75; PULSE 56–78; RESP 8–20; TEMP 36.1–37.2; O2SAT 91–100; BMI 23.2
--- OUTSIDE RECORDS SUMMARY | 2024-01-11 07:55 | XMS_ITS | Continuity of Care Document ---
Author Organization [facility] [place] [facility] [place] [address] [facility] [place] [address]- Care Team Providers Care Software Program Manager Name Role Phone Bindu Davidson MD Primary Care Physic charles Encounter 06/03/22 - 08/24/22 [facility] [address], [address] [place], [place] [address] Attending Physician: Ellie URENA, Jyoti Kim Admitting Physician: Ellie URENA, Jyoti Kim Referring Physician: Ellie URENA, Jyoti Kim Allergies, Adverse Reactions, Alerts Substance Reaction Severity Status Ceclor hives Active Medications Bentyl 20 mg oral tablet 1 tablet = 20 mg, By Mouth, 4 times a day, # 56 tablet, 1 Refills, Maintenance, 09/29/17 11:26:00 EDT, Tablet Start Date: 09/29/17 Stop Date: 10/27/17 Status: Ordered dicyclomine 20 mg oral tablet 1 tablet = 20 mg, By Mouth, 4 times a day, # 56 tablet, 1 Refills, Maintenance, 04/06/18 16:04:00 EDT, Tablet Start Date: 04/06/18 Stop Date: 05/04/18 Status: Ordered NuLYTELY Lemon [place] oral powder for reconstitution 240 mL, By Mouth, Every 15 minutes, # 4,000 mL, 0 Refills, Maintenance, 01/20/17 8:35:30, REC Powder Start Date: 01/20/17 Status: Ordered Problem List Condition Confirmation Course Effective Dates Status Health St atus Informant Asherman syndrome Confirmed Active C. difficile colitis Confirmed 09/2016 Active History of anal fissure Confirmed 07/2016 Active Uterus, septate Confirmed Active Patient Care team information Care Team Personnel Name: Bindu Davidson MD Position: S Outreach Member Role: PCP Address: Address: [address] [place] [address], [place] [address]- Care Team Related Persons Name: ALESSANDRA LILLY Address: home [address] [place] [address] Name: PAULINO CANCHOLA Address: home [address] [place] [address]
--- OUTSIDE RECORDS SUMMARY | 2024-01-11 07:55 | XMS_ITS | Continuity of Care Document ---
Author Organization [facility] [place] [facility] [place] [address] [facility] [place] [address]- Care Team Providers Care Braid Maker Name Role Phone Stuart SLAUGHTER, Bindu Hill Primary Care Physic charles Encounter 02/25/21 - 03/04/21 [facility] [address], [address] [place], [place] [address] Attending Physician: Ellie URENA, Jyoti Kim Admitting [...] Stop Date: 05/04/18 Status: Ordered NuLYTELY Lemon [place] oral powder for reconstitution 240 mL, By Mouth, Every 15 minutes, # 4,000 mL, 0 Refills, Maintenance, 01/20/17 8:35:30, REC Powder Start Date: 01/20/17 Status: Ordered Problem List Condition Effective Dates Status Health Status Inform ant Asherman syndrome(Confirmed) Active C. difficile colitis(Confirmed) 09/2016 Active History of anal fissure(Confirmed) 07/2016 Active Uterus, septate(Confirmed) Active
--- OUTSIDE RECORDS SUMMARY | 2024-01-11 07:55 | XMS_ITS | Continuity of Care Document ---
Author Organization [facility] [place] Address [address] [facility] [place] [address]- Care Team Providers Care Technical Professional Name Role Phone Stuart SLAUGHTER, Bindu Hill Primary Care Physic charles Encounter 02/12/23 - 02/19/23 [facility] [address], [address] [place], [place] [address] Attending Physician: Ellie URENA, Jyoti Kim Admitting Physician: Ellie URENA, Jyoti Kmi Referring Physician: Ellie URENA, Jyoti Kim Allergies, [...] Stop Date: 05/04/18 Status: Ordered NuLYTELY Lemon [place] oral powder for reconstitution 240 mL, By Mouth, Every 15 minutes, # 4,000 mL, 0 Refills, Maintenance, 01/20/17 8:35:30, REC Powder Start Date: 01/20/17 Status: Ordered Problem List Condition Confirmation Course Effective Dates Status Health St atus Informant Asherman syndrome Confirmed Active C. difficile colitis Confirmed 09/2016 Active History of anal fissure Confirmed 07/2016 Active Uterus, septate Confirmed Active Results Radiology Reports * Exam Date Time Procedure Performing Provider Status 02/12/23 11:44 AM MM Digital Mammo Screening Sayra Kwon; Auth (Verified) Notes: (MM Digital Mammo Screening) Reason For Exam: Z12.31 SCREENING RESULT: MM Digital Mammo Screening PROCEDURE: MM Digital Mammo Screening INDICATION: Screening for breast cancer. No known palpable abnormalities. Prior benign RIGHT breastbiopsy 2015. COMPARISON: Prior mammograms dating back to 07/18/2013, most recent comparison 02/25/2021. TECHNIQUE: Full-field digital CC and MLO 3-D tomosynthesis images of both breasts were acquired. Computer-aided detection (CAD) was utilized in the interpretation of this study. DENSITY: The breast tissue is extremely dense, which lowers the sensitivity of mammography. FINDINGS: No suspicious masses, suspicious microcalcifications, or areas of architectural distortion are seen in either breast to suggest malignancy. IMPRESSION: No mammographic evidence of malignancy. RECOMMENDATION: Annual mammographic screening BI-RADS: 1 (Negative) Lay letter mailed to patient WSN: [id number] Ordering Physician: Jyoti Argueta Dictated By: Stephanie Ray MD Dictated Date/Time: 02/12/23 3:53 pm Reviewed By: Stephanie Ray MD Signed By: Stephanie Ray MD Signed Date/Time: 02/12/23 3:53 pm Transcribed By: TREMAINE Neon Pumper Date/Time: 02/12/23 3:49 pm Birads: Patient Care team information Care Team Personnel Name: Bindu Davidson MD Position: S Outreach Member Role: PCP Address: Address: [address] [place] [address], [place], [place] [address] Care Team Related Persons Name: ALESSANDRA LILLY Address: home [address] [place] [address] Name: PAULINO CANCHOLA Address: home [address] [place] [address]
--- OUTSIDE RECORDS SUMMARY | 2024-01-11 07:55 | XMS_ITS | Continuity of Care Document ---
Author Organization [facility] Address [address] [place] [address]- Care Team Providers Care Tray Line Supervisor Name Role Phone Bindu Davidson MD Primary Care Physic charles Encounter [facility] [place] Date(s): 12/03/23 - 01/02/24 [facility] [address] [place], [place] [address] Allergies, Adverse Reactions, Alerts Substance Reaction Severity [...] Stop Date: 05/04/18 Status: Ordered NuLYTELY Lemon [place] oral powder for reconstitution 240 mL, By [...] S Outreach Member Role: PCP Address: Address: [address] [place] [address], [place] [place] [address]- Care Team Related Persons Name: VIJAYA ALESSANDRA Address: home [address] [place] [address] Name: PAULINO CANCHOLA Address: home [address] [place] [address]
--- OUTSIDE RECORDS SUMMARY | 2024-01-11 07:55 | XMS_ITS | Continuity of Care Document ---
Author Organization [facility] [place] [facility] [place] [address] [facility] [place] [address]- Care Team Providers Care Copping Machine Operator Name Role Phone Bindu Davidson MD Primary Care Physic charles Encounter 07/05/20 - 08/24/20 [facility] [address], [address] [place] [address]- Attending Physician: Bindu Davidson MD Admitting Physician: Bindu Davidson MD Referring Physician: Bindu Davidson MD Allergies, Adverse Reactions, Alerts Substance Reaction Severity [...] Stop Date: 05/04/18 Status: Ordered NuLYTELY Lemon [place] oral powder for reconstitution 240 mL, By Mouth, Every 15 minutes, # 4,000 mL, 0 Refills, Maintenance, 01/20/17 8:35:30, REC Powder Start Date: 01/20/17 Status: Ordered Problem List Condition Effective Dates Status Health Status Inform ant Asherman syndrome(Confirmed) Active C. difficile colitis(Confirmed) 09/2016 Active History of anal fissure(Confirmed) 07/2016 Active Uterus, septate(Confirmed) Active
--- OUTSIDE RECORDS SUMMARY | 2024-01-11 07:55 | XMS_ITS | Continuity of Care Document ---
Author Organization [facility] ter Address [address] [place] [id number]- Care Team Providers Care Veterinary Dentist Name Role Phone Bindu Davidson MD Primary Care Physic charles Encounter [facility] [place] Date(s): 01/30/23 - 06/11/[address] [address] Attending Physician: Jyoti Argueta NP Admitting Physician: Jyoti Argueta NP Referring Physician: Jyoti Argueta NP Allergies, Adverse Reactions, Alerts Substance Reaction Severity [...] Stop Date: 05/04/18 Status: Ordered NuLYTELY Lemon [place] oral powder for reconstitution 240 mL, By [...] S Outreach Member Role: PCP Address: Address: [address] [place] [address] Associates, [place] [address]- Care Team Related Persons Name: ALESSANDRA LILLY Address: home [address] [place] [address] Name: PAULINO CANCHOLA Address: home [address] [place] [address]
[2024-01-11 08:11] LABS: UPreg QC Valid YES; Urine Pregnancy NEGATIVE (NEGATIVE)
--- NOTE | 2024-01-11 08:22 | MHC.SHP ---
Pre-Procedural Eval Section A - 24 Hr Update-Section A only Date of Service: 01/11/24 The patient is an INPATIENT: No Changes since office visit: Yes Patient answered all questions; No Cold of Flu in the past 2 weeks, No New Medical Problems and No Changes in Medication The patient has been examined within 24 hours of the surgical procedure. The History & Physical has been completed within 30 days and I have reviewed it.: Yes Section B - Complete if H&P > 30 days Chief Complaint: Appendiceal Carcinoid Tumor Allergies: Allergies Allergy/AdvReac Type Severity Reaction Status Date / Time cefaclor [From [facility]] Allergy Severe HIVES Verified 01/11/24 07:59 Plan Diagnosis/Plan: Unchanged I have reviewed the history and physical and performed a pertinent physical examination on my patient. No changes have occurred unless specified. Time Spent With Patient Time: Total time managing care of this patient today ____ minutes.
[2024-01-11] MEDS: Lactated Ringers 1,000 ML 100 ML IVCONT (08:23)
--- NOTE | 2024-01-11 08:35 | P.CONAN_ITS ---
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 difficile colitis IBS (irritable bowel syndrome) Sigmoid volvulus Family History Family history of problems with anesthesia: No Surgical History Surgical History (Updated 01/04/24 @ 10:14 by Stephanie Jorge RN) Hx of laparoscopy H/O colonoscopy History of laparoscopic appendectomy (12/05/23) S/P colon resection History of Problems with Anesthesia: No Social History Social History Household Members: Children and None Household Members Other:: minor children Housing: House Are you a primary acute care physical therapist to a significant other at home: Yes Do you presently have visiting nurse or other home services: No Patient Tobacco Use Status: Never used Tobacco Second Hand Smoke Exposure: No Use of substances other than those prescribed or required for medical reasons: No Have you been hit, kicked, punched, or otherwise hurt by someone within the past year? If so, by whom?: No Are you DNR?: No Advance Directives Information Provided: Yes (as above noted) Advance Directives on File: No Recently lost weight without trying: No Eating poorly because of decreased appetite: No Nutrition Risks: No Nutritional Risk Patient : No FDLMP: 12/17/23 : No Poor oral hygiene: No (2 crowns-upper) Meds Allergies Allergy/AdvReac Type Severity Reaction Status Date / Time cefaclor [From [facility]] Allergy Severe HIVES Verified 01/11/24 07:59 Home Medications ?Medication ?Instructions ?Recorded ?Confirmed ?Last Taken ?Type dextroamphetamine-amphetamine 15 2 tab PO QAM 12/04/23 01/11/24 01/04/24 History mg tablet fluoxetine 20 mg capsule 40 mg PO QAM 12/04/23 01/11/24 01/10/24 History Exam Height,Weight and Vital Signs: Height 5 ft 4 in Weight 63.049 kg Last Vital Signs Pulse 67 01/04/24 10:16 Resp 20 01/04/24 10:16 BP 124/77 01/04/24 10:16 Pulse Ox 100 01/04/24 10:16 O2 Del Method Room Air 01/04/24 10:16 Pertinent Lab Results Pertinent Lab Results: Laboratory Tests 12/04/23 09:15 WBC 4.6 L Hgb 13.5 Hct 40.8 Plt Count 266 Sodium 140 Potassium 4.1 Chloride 106 Carbon Dioxide 28 BUN 15 Creatinine 0.68 Lab Results 01/04/24 Range/Units 11:02 Blood Type O Positive Antibody Screen NEGATIVE Narrative Narrative: EKG 12/2023 Vent. Rate : 062 BPM Atrial Rate : 062 BPM P-R Int : 124 ms QRS Dur : 084 ms QT Int : 438 ms P-R-T Axes : 009 052 034 degrees QTc Int : 444 ms Normal sinus rhythm with sinus arrhythmia Septal infarct , age undetermined ; can be related to body habitus/lead placement Abnormal ECG No previous ECGs available (c/w outside facility EKG, no change) Airway Mallampati Class: II TM Dist: >3cm Neck ROM: Full Loose/Missing/Broken Teeth: No (right upper permanent bridge) Heart: RRR Lungs: CTAB Assessment and Plan Assessment Anesthesia Assessment: Anesthesia Plan Discussed and PAT Visit Final Anesthetic Review Family History of Problems with Anesthesia: No History of Problems with Anesthesia: No Documented by User: Lesley Bowens DO 01/11/24 08:39 [facility] Past Medical History Medical History (Updated 01/04/24 @ 09:16 by Stephanie Jorge RN) Elevated cholesterol Benign neoplasm of pituitary gland Anxiety Depression Carcinoid tumor of appendix Acute appendicitis C. difficile colitis IBS (irritable bowel syndrome) Sigmoid volvulus Family History Family history of problems with anesthesia: No Surgical History Surgical History (Updated 01/04/24 @ 10:14 by Stephanie Jorge RN) Hx of laparoscopy H/O colonoscopy History of laparoscopic appendectomy (12/05/23) S/P colon resection History of Problems with Anesthesia: No Social History Social History Household Members: Children and None Household Members Other:: minor children Housing: House Are you a primary acute care physical therapist to a significant other at home: Yes Do you presently have visiting nurse or other home services: No Patient Tobacco Use Status: Never used Tobacco Second Hand Smoke Exposure: No Use of substances other than those prescribed or required for medical reasons: No Have you been hit, kicked, punched, or otherwise hurt by someone within the past year? If so, by whom?: No Are you DNR?: No Advance Directives Information Provided: Yes (as above noted) Advance Directives on File: No Recently lost weight without trying: No Eating poorly because of decreased appetite: No Nutrition Risks: No Nutritional Risk Patient : No FDLMP: 12/17/23 : No Poor oral hygiene: No (2 crowns-upper) Meds Allergies Allergy/AdvReac Type Severity Reaction Status Date / Time cefaclor [From [facility]] Allergy Severe HIVES Verified 01/11/24 07:59 Home Medications ?Medication ?Instructions ?Recorded ?Confirmed ?Last Taken ?Type dextroamphetamine-amphetamine 15 2 tab PO QAM 12/04/23 01/11/24 01/04/24 History mg tablet fluoxetine 20 mg capsule 40 mg PO QAM 12/04/23 01/11/24 01/10/24 History Exam Exam Date and Time: January 11, 2024 0835 Height,Weight and Vital Signs: Height 5 ft 4 in Weight 63.049 kg Last Vital Signs Pulse 67 01/04/24 10:16 Resp 20 01/04/24 10:16 BP 124/77 01/04/24 10:16 Pulse Ox 100 01/04/24 10:16 O2 Del Method Room Air 01/04/24 10:16 Vital Signs Pulse Rate 67 01/04/24 10:16 Respiratory Rate 20 01/04/24 10:16 Blood Pressure 124/77 01/04/24 10:16 Pulse Oximetry 100 01/04/24 10:16 Oxygen Delivery Method Room Air 01/04/24 10:16 Temperature 98.9 F 01/11/24 08:10 Pulse Rate 56 01/11/24 08:10 Respiratory Rate 16 01/11/24 08:10 Blood Pressure 110/69 01/11/24 08:10 Pulse Oximetry 100 01/11/24 08:10 Oxygen Delivery Method Room Air 01/11/24 08:10 Airway Mallampati Class: I TM Dist: >3cm Neck ROM: Full Loose/Missing/Broken Teeth: No (patient denies any loose or broken teeth) Heart: S1S2 Assessment and Plan Assessment Anesthesia Assessment: Anesthesia Plan Discussed and Chart Reviewed Final Anesthetic Review Family History of Problems with Anesthesia: No History of Problems with Anesthesia: No NPO: Yes ASA Class: II Final Preanesthetic Review: No Changes in Pt Med Stat, Meds/Allgs Chart Reviewed, Consent Obtained/Reviewed and Anes Risks/Benef Reviewed Patient Risk: Low Procedure Risk: Low Anesthetic Plan Anesthetic Plan: GA, Regional Block (bilateral TAP block) and Agree w/ Assess. and Plan Disposition: Standard PACU
--- NOTE | 2024-01-11 11:30 | W.PM.OPN ---
Operative Note Operative Note Date of Service: 01/11/24 Narrative: Preoperative diagnosis: Carcinoid of appendix Postoperative diagnosis: Same Procedure: Hand assisted laparoscopic sigmoid colectomy Surgeon: Jose Cruz Schmitz MD Computer Engineering Professor: Kait Knowles PA-C, Je Kilpatrick, MS-3 Anesthesia: General endotracheal Indications for procedure: 43-year-old female patient initially presenting with complaints of abdominal pain in the right lower quadrant found to have an enlarged appendix suggestive of appendicitis. She underwent laparoscopic appendectomy and pathology revealed a carcinoid at the tip of the appendix measuring 2.1 cm. She presents today for elective right colectomy. Operative findings: Previous appendectomy. Moderate adhesions in the right lower quadrant. No evidence of metastatic tumor to mesentery or liver Specimen: Right colon Estimated blood loss: 2 mL Complications: None Procedure details: Patient was brought to the OR and placed in a supine position. After administering general anesthesia Nolan catheter was inserted. A tap block was applied by anesthesia. Patient's abdomen was then prepped with ChloraPrep and draped in a sterile fashion. A surgical time-out was called the consent confirmed. Patient received preoperative antibiotics and Venodyne boots were in place. A small midline incision was made around the umbilicus measuring approximately 6 cm. This was carried out through subcutaneous tissue and through linea alba. The peritoneum was then entered and a hand port inserted. The abdomen was then insufflated to a pressure of 15 mmHg of CO2. A 2nd 5 mm trocar was placed in the lower midline over her previous incision and a 3rd 1 in the epigastric region. A 12 mm trocar was placed through the hand port used for dissection. The patient was then placed in a Trendelenburg position and rotated to the left. The sidewall attachments of the terminal ileum and right colon were then taken down using the LigaSure dissection. This was completely mobilized along the hepatic flexure. The hepatic flexure was then completely mobilized to the level of the right branch of the middle colic artery. At this point a Endo-PAIGE stapler was used to divide the terminal ileum proximally 10 cm proximal to the ileocecal valve. LigaSure was then used to divide the mesentery of the terminal ileum towards the ileocolic artery. The peritoneum overlying the ileocolic artery was then skeletonized. Several lymph nodes were identified in the mesentery. The duodenal was identified and a high ligation performed of the ileocolic artery using an Endo-PAIGE vascular stapler. Dissection was then continued along the mesentery of the transverse colon to include the right colic and right branch of the middle colic arteries. Once again an Endo-PAIGE stapler was obtained and used to divide the transverse colon at the level of the right branch of the middle colic artery. The specimen was then removed and sent to pathology for further examination. The distal ileum and proximal transverse colon was then brought up through the incision at the hand port. A functional end-to-end anastomosis was then performed using a PAIGE stapler through a enterotomy of the ileum and transverse colon. The enterotomy was then closed using a PAIGE 60 stapler. The staple line was then reinforced using interrupted Lembert 3-0 Surgilon sutures. The mesenteric defect was then closed using interrupted 3-0 Surgilon sutures as well. The anastomosis was returned to the abdomen in the abdomen once again insufflated. Wounds were checked for hemostasis. The anastomosis was found to be tension free. Hand port was then removed and CO2 evacuated. All ports were then removed and no bleeding noted from the trocar sites. Fascia was closed at the midline incision using a running 0 PDS looped suture. Dermis was reapproximated using interrupted 3-0 Polysorb sutures. Skin was closed using a running subcuticular 4-0 Polysorb suture. Port sites were also closed using 4-0 Polysorb suture. Steri-Strips, 2 x 2 gauze and Tegaderm were then applied. The patient tolerated the procedure well. Sponge, instrument, and needle counts reported as correct. The patient was transferred to PACU in stable condition.
[2024-01-11] MEDS: HYDROmorphone HCl 0.5 MG/0.5 ML SYRINGE 0.25 MG IVPUSH ×4 (11:54→14:44)
[2024-01-11] MEDS: HYDROmorphone HCl 0.5 MG/0.5 ML SYRINGE IVPUSH ×3 (12:13→12:30)
[2024-01-11] MEDS: HYDROmorphone HCl 1 MG/ML SYRINGE IVPUSH (12:42)
[2024-01-11] MEDS: Dextrose 5 % and Lactated Ring 1,000 ML 100 ML IVCONT (15:08)
[2024-01-11] MEDS: Acetaminophen 1,000 MG/100 ML PIGGYBACK 400 MG IV ×2 (15:08→21:12)
[2024-01-11] MEDS: Morphine Sulfate/NS 100 MG/100 ML PLAST..BAG IVCONT (15:44)
--- NOTE | 2024-01-11 15:55 | PHA.MEDREC ---
Pharmacy Consult ? Medication Reconciliation Pharmacy has completed the medication reconciliation. Confirmed medications with patient. Patient confirmed she is still taking her Dextroamphetamine-amphetamine 2 tabs in daily and she last took that last Thursday01/06/24.
[2024-01-12] VITALS (13 sets, daily range): BP systolic 100–118; BP diastolic 51–71; PULSE 50–63; RESP 15–18; TEMP 36.2–37.1; O2SAT 93–99
[2024-01-12] MEDS: Dextrose 5 % and Lactated Ring 1,000 ML 100 ML IVCONT ×2 (00:03→09:18)
[2024-01-12] MEDS: Acetaminophen 1,000 MG/100 ML PIGGYBACK 400 MG IV ×4 (02:58→20:02)
[2024-01-12 06:26] LABS: MANUAL DIFF FLAG NO
[2024-01-12 06:39] LABS: Basophils Percent Auto 0.1 % (0-2); Hematocrit 40.4 % (37.0-47.0); Hemoglobin 13.1 g/dl (12.0-16.0); Imm Gran Abs Auto 0.07 X10*3/uL (0.00-0.03); Imm Gran Pct Auto 0.6 % (0.0-0.4); Lymphocytes Absolute Auto 0.5 X10*3/uL (1.2-4.9); Lymphocytes Percent Auto 4.1 % (20-40); Mean Corpuscular HGB Conc 32.4 g/dl (31.0-35.0); Mean Corpuscular Hemoglobin 28.3 pg (27.0-33.0); Mean Corpuscular Volume 87.3 fL (80.0-98.0); Mean Platelet Volume 11.4 fL (9.4-12.3); Monocytes Absolute Auto 1.1 X10*3/uL (0.1-1.2); Monocytes Percent Auto 9.5 % (2-11); Neutrophils Absolute Auto 10.3 x10*3/uL (2.0-8.3); Neutrophils Percent Auto 85.7 % (45-73); Platelet Count 265 X10*3/uL (160-400); Red Blood Count 4.63 X10*6/uL (4.20-5.50)
--- NOTE | 2024-01-12 07:10 | P.PNGS_ITS ---
Subjective Subjective Date of Service: 01/12/24 Interval history: No acute overnight events. Shell is overall doing well and looks comfortable. Pain is well-controlled w/ DIRECTOR MARKETING ANALYTICS, rated as a 4/10. She reports no nausea or vomiting. She has not been OOB. She has not yet passed gas or had a BM. Reports using IS. Je Kilpatrick M3 Physical Exam 2 Vital Signs: Vital Signs: Last Vital Signs Temp 97.6 F 01/12/24 07:00 Pulse 62 01/12/24 07:00 Resp 15 01/12/24 07:00 BP 103/66 01/12/24 07:00 Pulse Ox 96 01/12/24 07:00 O2 Del Method Nasal Cannula 01/12/24 07:00 O2 Flow Rate 1 01/12/24 07:00 BMI result Body Mass Index 23.2 Const: General: cooperative, healthy appearing, comfortable and no acute distress Orientation/consciousness: patient oriented x3 GI: Other: bandaging clean and intact. appropriate incisional tenderness. mild RLQ tenderness to light palpation. Palpation (GI): Tenderness to palpation present (GI), no guarding, not rigid and No Rebound tenderness present Percussion: Yes normal to percussion Neuro: General: patient oriented x3 Objective Data Active Medications Calcium Carbonate (Calcium Carbonate 750 Mg Tab.Chew) 750 mg PO Q4H PRN PRN Reason: Heartburn Morphine Sulfate (Morphine Sulfate/Ns) 100 mg in 100 mls @ 0 mls/hr IVCONT .Q0M [facility]; Protocol Last Admin: 01/11/24 15:44 Dose: 0.1 mg/hr, 0.1 mls/hr Documented By: ESCOBAR Acetaminophen (Ofirmev) 1,000 mg in 100 mls @ 400 mls/hr IV Q6H [facility] Last Infusion: 01/12/24 03:29 Dose: Infused Documented By: CHELSEA Dextrose/Lactated Ringer's (D5lr) 1,000 mls @ 100 mls/hr IVCONT .Q10H [facility] Last Admin: 01/12/24 00:03 Dose: 100 mls/hr Documented By: TOBIAS Magnesium Hydroxide (Milk Of Magnesia 30 Ml Oral.Susp) 30 ml PO DAILY PRN PRN Reason: Constipation Melatonin (Melatonin 3 Mg Tablet) 6 mg PO BEDTIME PRN PRN Reason: Insomnia Naloxone HCl (Naloxone Hcl 0.4 Mg/Ml Vial) 0.2 mg IVPUSH Q2M PRN PRN Reason: Excessive sedation or RR < 8 Ondansetron HCl (Ondansetron Hcl 4 Mg/2 Ml Vial) 4 mg IVPUSH QID PRN PRN Reason: Nausea Sodium Chloride (0.9 % Sodium Chloride Flush 3 Ml Syringe) 3 ml IVFLUSH QSHIFT [facility] Last Admin: 01/11/24 21:33 Dose: Not Given Documented By: TOBIAS Non-Admin Reason: IV Running Labs 01/12/24 05:51 Labs: Laboratory Results - last 24 hr 01/11/24 01/12/24 07:50 05:51 MCV 87.3 MCH 28.3 MCHC 32.4 RDW 14.0 Plt Count 265 MPV 11.4 Immature Gran % (Auto) 0.6 H Neut % (Auto) 85.7 H Lymph % (Auto) 4.1 L Dickens % (Auto) 9.5 Eos % (Auto) 0.0 Baso % (Auto) 0.1 Lymph # (Auto) 0.5 L Dickens # (Auto) 1.1 Eos # (Auto) 0.0 Baso # (Auto) 0.0 Abs Immat Gran (auto) 0.07 H Absolute Neuts (auto) 10.3 H Absolute Nucleated RBC 0.000 Nucleated RBC % (auto) 0.0 Urine Test NEGATIVE Procedures Date of Service Date of Service: 01/12/24 Progress Note: A&P Assessment and plan Plan VSS. H/H stable. Benign abdomen w/ clean bandaging, currently no evidence of GI function. D/c wright. Continue OOB and IS. Liquid diet as tolerated. Continue DIRECT[employer] MARKETING [employer]NALYT[employer], consider prn analgesics tomorrow. Je Kilpatrick M3 Time Spent With Patient Time: Total time managing care of this patient today ____ minutes. Quality VTE VTE Risk Level:: Surgical - low VTE Device Contraindication: N/A - Device Ordered VTE Drug Contraindication: Treatment Not Indicated
--- NOTE | 2024-01-12 08:14 | PM.PNGS ---
Subjective Subjective Date of Service: 01/12/24 Interval history: More comfortable this morning, 09/22. Denies nausea or vomiting. Still not much of an appetite. Physical Exam Vital Signs: Vital Signs: Last Vital Signs Temp 97.6 F 01/12/24 07:00 Pulse 62 01/12/24 07:00 Resp 15 01/12/24 07:00 BP 103/66 01/12/24 07:00 Pulse Ox 96 01/12/24 07:00 O2 Del Method Nasal Cannula 01/12/24 07:00 O2 Flow Rate 1 01/12/24 07:00 BMI result Body Mass Index 23.2 Const: General: healthy appearing Nutritional Appearance: well nourished Orientation/consciousness: patient oriented x3 Limitations: no limitations Resp: Effort & Inspection: normal respiratory effort GI: Other: Soft, tender right lower quadrant, dressings clean, dry and intact Neuro: General: patient oriented x3 Extrem: Other: No edema Objective Data Active Medications Calcium Carbonate (Calcium Carbonate 750 Mg Tab.Chew) 750 mg PO Q4H PRN PRN Reason: Heartburn Morphine Sulfate (Morphine Sulfate/Ns) 100 mg in 100 mls @ 0 mls/hr IVCONT .Q0M [facility]; Protocol Last Admin: 01/11/24 15:44 Dose: 0.1 mg/hr, 0.1 mls/hr Documented By: ESCOBAR Acetaminophen (Ofirmev) 1,000 mg in 100 mls @ 400 mls/hr IV Q6H [facility] Last Infusion: 01/12/24 03:29 Dose: Infused Documented By: CHELSEA Dextrose/Lactated Ringer's (D5lr) 1,000 mls @ 100 mls/hr IVCONT .Q10H [facility] Last Admin: 01/12/24 00:03 Dose: 100 mls/hr Documented By: TOBIAS Magnesium Hydroxide (Milk Of Magnesia 30 Ml Oral.Susp) 30 ml PO DAILY PRN PRN Reason: Constipation Melatonin (Melatonin 3 Mg Tablet) 6 mg PO BEDTIME PRN PRN Reason: Insomnia Naloxone HCl (Naloxone Hcl 0.4 Mg/Ml Vial) 0.2 mg IVPUSH Q2M PRN PRN Reason: Excessive sedation or RR < 8 Ondansetron HCl (Ondansetron Hcl 4 Mg/2 Ml Vial) 4 mg IVPUSH QID PRN PRN Reason: Nausea Sodium Chloride (0.9 % Sodium Chloride Flush 3 Ml Syringe) 3 ml IVFLUSH QSHIFT [facility] Last Admin: 01/12/24 07:11 Dose: Not Given Documented By: ESCOBAR Non-Admin Reason: IV Running Labs 01/12/24 05:51 Labs: Laboratory Results - last 24 hr 01/12/24 05:51 MCV 87.3 MCH 28.3 MCHC 32.4 RDW 14.0 Plt Count 265 MPV 11.4 Immature Gran % (Auto) 0.6 H Neut % (Auto) 85.7 H Lymph % (Auto) 4.1 L [place] % (Auto) 9.5 Eos % (Auto) 0.0 Baso % (Auto) 0.1 Lymph # (Auto) 0.5 L [place] # (Auto) 1.1 Eos # (Auto) 0.0 Baso # (Auto) 0.0 Abs Immat Gran (auto) 0.07 H Absolute Neuts (auto) 10.3 H Absolute Nucleated RBC 0.000 Nucleated RBC % (auto) 0.0 Procedures Date of Service Date of Service: 01/12/24 Progress Note: A&P Assessment and plan (1) Carcinoid tumor of appendix: Status: Acute Plan Pod 1 following right colectomy for carcinoid tumor. Patient tolerated the procedure well. Good pain control at this time. Plan out of bed and ambulation. DC Nolan catheter. Plan DC STORE SALES MANAGER tomorrow switch to oral pain medication. Time Spent With Patient Time: Total time managing care of this patient today ____ minutes. Quality Stroke Does the patient have a stroke diagnosis?: No VTE Prior VTE?: No VTE Risk Level:: Surgical - low VTE Device Contraindication: N/A - Device Ordered VTE Drug Contraindication: Treatment Not Indicated
--- NOTE | 2024-01-12 09:20 | MHC.CM.PN ---
CM MET WITH PT AT BEDSIDE. PT LIVES WITH CHILDREN,COUSIN. PT IS INDEPENDENT AND EMPLOYED FOR F/T. +HCP. HAS AN UPCOMING NEW PT APPT WITH DR. LEONE ON 01/28. DP: HOME, NO SERVICES. PT HAS OWN RIDE HOME. CM WILL CONTINUE TO FOLLOW FOR ANY CHANGE TO DC PLAN/NEEDS.
--- NOTE | 2024-01-12 11:06 | HO.POSTANES ---
Post Anesthesia Evaluation Post Anesthesia Evaluation Date of Service: 01/11/24 Vital Signs: Vital Signs Temp Pulse Resp BP Pulse Ox O2 Del Method O2 Flow Rate 01/12/24 10:23 98 F 56 16 103/57 L 98 Room Air 01/12/24 08:17 98 F 62 16 116/71 98 Room Air 01/12/24 07:00 97.6 F 62 15 103/66 96 Nasal Cannula 1 01/12/24 05:00 98.8 F 62 18 110/66 97 Nasal Cannula 2 01/12/24 03:00 98.3 F 62 17 112/65 98 Nasal Cannula 2 01/12/24 01:00 98.7 F 63 17 118/69 97 Nasal Cannula 2 Anesthesia: General Mental Status: Awake Pain Control: Satisfactory Nausea/Vomiting: None Hydration: Adequate Anesthesia-Related Issues: No Anes. Related Issues
[2024-01-12] MEDS: Morphine Sulfate/NS 100 MG/100 ML PLAST..BAG IVCONT (15:24)
--- NOTE | 2024-01-12 15:28 | PC.NURSE ---
[employer] SYSTEM OPERATION SUPERINTENDENT bag changed 100mg/100ml with charge nurse Jaxson Valentin. 57.9ml wasted witnessed by allergist/immunologist physician.
[2024-01-12] MEDS: Calcium Carbonate 750 MG TAB.CHEW PO (20:35)
[2024-01-13] VITALS (12 sets, daily range): BP systolic 97–122; BP diastolic 50–65; PULSE 44–62; RESP 14–18; TEMP 36.3–36.9; O2SAT 93–97
--- NOTE | 2024-01-13 01:28 | PC.NURSE ---
Addendum entered by Emily Awan RN 01/13/24 04:20: DR Schmitz replied at 0203 I plan on stopping it in the AM. She was complaining of significant pain prior to the security chief museum pump. Addendum entered by Emily Awan RN 01/13/24 01:59: Ingris, Bulk Station Agent aware and suggested I contact Dr Schmitz char conveyor tender cellar. MD notified via [employer]. Original Note: patient assessed at 0125, patient opened eyes hearing me walk into room, remains alert and oriented. Heart rate 47 per nurses aide. I listened apically and heart 50 beats in full minute. BP stable low 100's systolically. Denies feeling dizzy or lightheaded. Bulk Station Agent notified as patient has APPLICATIONS TRAINER set up to be able to administer herself 4mg Morphine per hour.
[2024-01-13] MEDS: Acetaminophen 1,000 MG/100 ML PIGGYBACK 400 MG IV ×4 (03:03→22:31)
--- NOTE | 2024-01-13 06:56 | P.PNGS_ITS ---
Subjective Subjective Date of Service: 01/13/24 <Je Kilpatrick - Last Filed: 01/13/24 07:27> 01/13/24 <Kait Knowles PA-C - Last Filed: 01/13/24 07:43> 01/13/24 <Jose Cruz Schmitz MD - Last Filed: 01/13/24 08:02> Interval history: No acute overnight events. BP and pulse are low. She remains asymptomatic and no dizziness or lightheadness on ambulation. She received IV tylenol at 3am and she feels this is helping well with her pain, she rates her pain as a 3/10. She reports a BM, but no flatus at this time. She is tolerating her liquid diet well. Reports using IS frequently. Je Kilpatrick M3 <Je Kilpatrick Last Filed: 01/13/24 07:27> Physical Exam 2 Vital Signs: Vital Signs: Last Vital Signs Temp 98 F 01/13/24 06:50 Pulse 48 L 01/13/24 06:50 Resp 16 01/13/24 06:50 BP 103/57 L 01/13/24 06:50 Pulse Ox 96 01/13/24 06:50 O2 Del Method Room Air 01/13/24 06:50 O2 Flow Rate 1 01/12/24 07:00 BMI result Body Mass Index 23.2 <Je Kilpatrick Last Filed: 01/13/24 07:27> Const: General: cooperative, healthy appearing, comfortable and no acute distress <Je Kilpatrick Last Filed: 01/13/24 07:27> Orientation/consciousness: patient oriented x3 <Je Kilpatrick Last Filed: 01/13/24 07:27> Cardio: Rate: bradycardic <Je Kilpatrick Last Filed: 01/13/24 07:27> Rhythm: regular rhythm <Je Kilpatrick Last Filed: 01/13/24 07:27> Heart sounds: S1 normal heart sound present, S2 normal heart sound present, no gallops, no murmurs and no rubs <Je Kilpatrick Last Filed: 01/13/24 07:27> GI: Other: Appropriate incisional tenderness. Bandanges clean and intact w/o discharge. <Je Kilpatrick - Last Filed: 01/13/24 07:27> Other: Appropriate incisional tenderness. Bandanges clean and intact w/o discharge. Dressings removed, wounds clean, dry, and intact. <Jose Cruz Schmitz MD - Last Filed: 01/13/24 08:02> Palpation (GI): Soft to palpation, nontender, no guarding and not rigid < Je Kilpatrick - Last Filed: 01/13/24 07:27> Percussion: Yes normal to percussion <Je Kilpatrick - Last Filed: 01/13/24 07:27> Auscultation: normoactive bowel sounds <Je Kilpatrick - Last Filed: 01/13/24 07:27> Abdomen image: 1. 2. 3. <Je Kilpatrick - Last Filed: 01/13/24 07:27> Abdomen image: 1. 2. 3. <Jose Cruz Schmitz MD - Last Filed: 01/13/24 08:02> Neuro: General: patient oriented x3 <Je Kilpatrick - Last Filed: 01/13/24 07:27> Objective Data Active Medications Calcium Carbonate (Calcium Carbonate 750 Mg Tab.Chew) 750 mg PO Q4H PRN PRN Reason: Heartburn Last Admin: 01/12/24 20:35 Dose: 750 mg Documented By: LISA Morphine Sulfate (Morphine Sulfate/Ns) 100 mg in 100 mls @ 0 mls/hr IVCONT .Q0M [facility]; Protocol Last Admin: 01/12/24 15:24 Dose: 0.1 mg/hr, 0.1 mls/hr Documented By: ESCOBAR Acetaminophen (Ofirmev) 1,000 mg in 100 mls @ 400 mls/hr IV Q6H [facility] Last Infusion: 01/13/24 04:07 Dose: Infused Documented By: SEAN Magnesium Hydroxide (Milk Of Magnesia 30 Ml Oral.Susp) 30 ml PO DAILY PRN PRN Reason: Constipation Melatonin (Melatonin 3 Mg Tablet) 6 mg PO BEDTIME PRN PRN Reason: Insomnia Naloxone HCl (Naloxone Hcl 0.4 Mg/Ml Vial) 0.2 mg IVPUSH Q2M PRN PRN Reason: Excessive sedation or RR < 8 Ondansetron HCl (Ondansetron Hcl 4 Mg/2 Ml Vial) 4 mg IVPUSH QID PRN PRN Reason: Nausea Sodium Chloride (0.9 % Sodium Chloride Flush 3 Ml Syringe) 3 ml IVFLUSH QSHIFT JEAN-PIERRE Last Admin: 01/12/24 20:04 Dose: Not Given Documented By: LISA Non-Admin Reason: IV Running <Je Kilpatrick - Last Filed: 01/13/24 07:27> Labs CBC & Chem 7: 01/12/24 05:51 <Abelalina Kilpatrick - Last Filed: 01/13/24 07:27> Procedures Date of Service Date of Service: 01/13/24 <Je Kilpatrick - Last Filed: 01/13/24 07:27> 01/13/24 <Kait Knowles PA-C - Last Filed: 01/13/24 07:43> 01/13/24 <Jose Cruz Schmitz MD - Last Filed: 01/13/24 08:02> Progress Note: A&P Assessment and plan (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 Abhijit and hypotensive, but remains asymptomatic. H/H stable. Abdomen benign, w/ appropriate incisional tenderness. She is tolerating her liquid diet well, we can continue to advance. D/c DIRECTOR CUSTOM and begin prn analgesics. Je Kilpatrick M3 <Abelindraamandeep Shonna - Last Filed: 01/13/24 07:27> POD 2 s/p colectomy. Abhijit and hypotensive, but remains asymptomatic. H/H stable. Abdomen benign, w/ appropriate incisional tenderness. She is tolerating her liquid diet well, we can continue to advance. D/c DIRECTOR CUSTOM and begin prn analgesics. Je Kilpatrick M3 Agree with above assessment. Doing well post op POD #2 s/p ALEXANDRE right colectomy. Abd benign with clean incisions, appropriate post op tenderness. Will advance to solid diet. DC DIRECTOR CUSTOM and transition to PRN oral and IV analgesics, cont to increase activity. Pathology is pending. HR/BP has been soft- likely around baseline, patient asymptomatic. Continue to monitor. Possibly home later today if tolerating solid diet and comfortable on PO analgesics. Patient comfortable with plan. <Kait Knowles PA-C - Last Filed: 01/13/24 07:43> Time Spent With Patient Time: Total time managing care of this patient today ____ minutes. <Je Kilpatrick - Last Filed: 01/13/24 07:27> Quality Stroke Does the patient have a stroke diagnosis?: No <Je Adamson Last Filed: 01/13/24 07:27> VTE Prior VTE?: No <Je Adamson Last Filed: 01/13/24 07:27> VTE Risk Level:: Surgical - low <Je Adamson Last Filed: 01/13/24 07:27> VTE Device Contraindication: N/A - Device Ordered <Je Adamson Last Filed: 01/13/24 07:27> VTE Drug Contraindication: Treatment Not Indicated <Je Adamson Last Filed: 01/13/24 07:27>
[2024-01-13] MEDS: oxyCODONE HCl Immed Release 5 MG TABLET PO ×3 (07:46→16:29)
[2024-01-13] MEDS: Morphine Sulfate 4 MG/ML CARTRIDGE 3 MG IVPUSH ×2 (14:58→19:21)
[2024-01-13] MEDS: 0.9 % Sodium Chloride Flush 3 ML SYRINGE IVFLUSH ×2 (14:59→22:33)
--- NOTE | 2024-01-13 15:11 | MHC.CM.PN ---
Patient is not cleared for discharge. The plan per surgery is to advance her diet. Pain management will be changed from a CHECKROOM CHIEF to PRN pain medication.DP home self care. Patient will arrange for a ride home at discharge.
[2024-01-14] MEDS: oxyCODONE HCl Immed Release 5 MG TABLET PO (02:09)
[2024-01-14] MEDS: Acetaminophen 1,000 MG/100 ML PIGGYBACK 400 MG IV ×2 (04:12→10:00)
--- NOTE | 2024-01-14 06:53 | P.PNGS_ITS ---
Subjective Subjective Date of Service: 01/14/24 <Je Shonna - Last Filed: 01/14/24 07:34> 01/14/24 <Kait Knowles PA-C - Last Filed: 01/14/24 07:40> 01/14/24 <Jose Cruz Schmitz MD - Last Filed: 01/14/24 10:59> Interval history: No acute overnight events. Pain is well controlled with prn oxy and hydromorphone. She is passing flatus and has had loose stools. OOB w/o assistance. Tolerating solids w/o nausea or vomiting. Abelalina Kilpatrick M3 <Je Shonna - Last Filed: 01/14/24 07:34> Physical Exam 2 Vital Signs: Vital Signs: Last Vital Signs Temp 97.4 F 01/13/24 22:51 Pulse 50 01/13/24 22:51 Resp 16 01/13/24 22:51 BP 103/56 L 01/13/24 22:51 Pulse Ox 97 01/13/24 22:51 O2 Del Method Room Air 01/13/24 22:51 O2 Flow Rate 1 01/12/24 07:00 BMI result Body Mass Index 23.2 <Je Shonna - Last Filed: 01/14/24 07:34> GI: Other: benign abdomen. appropriate incisional tenderness. steri-strips with a small amount of dry blood. <Je Shonna - Last Filed: 01/14/24 07:34> Inspection: Yes normal to inspection <Je Shonna Last Filed: 01/14/24 07:34> Palpation (GI): nontender, no guarding, not rigid and No Rebound tenderness present <Je Shonna - Last Filed: 01/14/24 07:34> Percussion: Yes normal to percussion <Je Kilpatrick - Last Filed: 01/14/24 07:34> Auscultation: normal bowel sounds <Je Kilpatrick Last Filed: 01/14/24 07:34> Objective Data Active Medications Calcium Carbonate (Calcium Carbonate 750 Mg Tab.Chew) 750 mg PO Q4H PRN PRN Reason: Heartburn Last Admin: 01/12/24 20:35 Dose: 750 mg Documented By: LISA Acetaminophen (Ofirmev) 1,000 mg in 100 mls @ 400 mls/hr IV Q6H [facility] Last Infusion: 01/14/24 04:30 Dose: Infused Documented By: DARCI Magnesium Hydroxide (Milk Of Magnesia 30 Ml Oral.Susp) 30 ml PO DAILY PRN PRN Reason: Constipation Melatonin (Melatonin 3 Mg Tablet) 6 mg PO BEDTIME PRN PRN Reason: Insomnia Morphine Sulfate (Morphine Sulfate 4 Mg/Ml Cartridge) 3 mg IVPUSH Q4H PRN; Protocol PRN Reason: Pain, Severe (Pain Scale 7-10) Last Admin: 01/13/24 19:21 Dose: 3 mg Documented By: DARCI Naloxone HCl (Naloxone Hcl 0.4 Mg/Ml Vial) 0.2 mg IVPUSH Q2M PRN PRN Reason: Excessive sedation or RR < 8 Ondansetron HCl (Ondansetron Hcl 4 Mg/2 Ml Vial) 4 mg IVPUSH QID PRN PRN Reason: Nausea Oxycodone HCl (Oxycodone Hcl Immed Release 5 Mg Tablet) 5 mg PO Q4H PRN PRN Reason: Pain, Moderate(Pain Scale 4-6) Last Admin: 01/14/24 02:09 Dose: 5 mg Documented By: DARCI Sodium Chloride (0.9 % Sodium Chloride Flush 3 Ml Syringe) [facility] Last Admin: 01/13/24 22:33 Dose: 3 ml Documented By: DARCI <Je Kilpatrick - Last Filed: 01/14/24 07:34> Labs CBC & Chem 7: 01/12/24 05:51 <Je Kilpatrick - Last Filed: 01/14/24 07:34> Procedures Date of Service Date of Service: 01/14/24 <Je Kilpatrick - Last Filed: 01/14/24 07:34> 01/14/24 <Kait Knowles PA-C - Last Filed: 01/14/24 07:40> 01/14/24 <Jose Cruz Schmitz MD - Last Filed: 01/14/24 10:59> Progress Note: A&P Assessment and plan (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 VSS, slightly hypotensive, but likely baseline and asymptomatic. H/H stable. Abdominal exam benign. Signs of GI function; flatus and BM. Consider discharge today. Je Kilpatrick M3 <Je Kilpatrick - Last Filed: 01/14/24 07:34> POD3 s/p colectomy. VSS, slightly hypotensive, but likely baseline and asymptomatic. H/H stable. Abdominal exam benign. Signs of GI function; flatus and BM. Consider discharge today. Je Kilpatrick M3 Agree with above assessment and plan. Patient POD #3 s/p ALEXANDRE right colectomy. Doing well post op, comfortable on PO analgesics and tolerating solid diet. VSS. Abd exam benign with clean incision. Stable for dc to home today. F/u in office in 1 week. Patient comfortable with plan. <Kait Knowles PA-C - Last Filed: 01/14/24 07:40> Time Spent With Patient Time: Total time managing care of this patient today ____ minutes. <Je Kilpatrick - Last Filed: 01/14/24 07:34> Quality Stroke Does the patient have a stroke diagnosis?: No <Je Kilpatrick - Last Filed: 01/14/24 07:34> VTE Prior VTE?: No <Je Kilpatrick - Last Filed: 01/14/24 07:34> VTE Risk Level:: Surgical - low <Je Kilpatrick - Last Filed: 01/14/24 07:34> VTE Device Contraindication: N/A - Device Ordered <Je Kilpatrick - Last Filed: 01/14/24 07:34> VTE Drug Contraindication: Treatment Not Indicated <Je Kilpatrick - Last Filed: 01/14/24 07:34>
[2024-01-14 07:40] VITALS: BP 110/68; PULSE 57; RESP 16; TEMP 36.8; O2SAT 97
--- NOTE | 2024-01-14 08:52 | MHC.CM.PN ---
PT WILL DC HOME TODAY WITH NO SERVICES VIA PRIVATE TRANSPORT
--- NOTE | 2024-01-14 14:22 | P.DS_ITS ---
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 She underwent laparoscopic ap pendectomy and pathology revealed a carcinoid at the tip of the appendix measuring 2.1 cm. She presents today for elective right colectomy. HOSPITAL COURSE: On 01/11/24, Right hemicolectomy-ileocolic and right colic arteries was performed by Dr. Schmitz without complication. The patient tolerated the procedure well and was admitted to the medical/surgical floor for observation following. She had an uncomplicated recovery course. She was started on a CHARTER COORDINATOR post operatively. This was continued until POD #2 and she was transitioned to PRN analgesics. Her wright was removed on POD #1. She was ambulated. She was tolerating clear liquids and she was advanced to solids on POD #2. She began to pass flatus and have liquid bowel movements. On the day of discharge, she was tolerating a solid diet without nausea or vomiting, had good pain control on oral analgesics, was ambulating without difficulty. She had good GI function. Her abdomen was benign with clean incisions. She felt ready for discharge. She was discharged to home on 01/14/24 in stable condition. She is to follow up in the office in 1 week. Status at Discharge Functional status at discharge: independent ambulation Overall status at discharge: patient is progressing back to baseline Time Attestation Discharge Coordination Time (in mins): 40 Quality: Safe Use of Opioids Does Pt have an Active Cancer Diagnosis on the Problem List?: No Quality: Stroke Does the patient have a stroke diagnosis?: No Physical Exam Vital Signs: Vital Signs: Last Vital Signs Temp 98.3 F 01/14/24 07:40 Pulse 57 01/14/24 07:40 Resp 16 01/14/24 07:40 BP 110/68 01/14/24 07:40 Pulse Ox 97 01/14/24 07:40 O2 Del Method Room Air 01/14/24 07:40 O2 Flow Rate 1 01/12/24 07:00 BMI result Body Mass Index 23.2 Const: General: comfortable, no acute distress and alert Orientation/consciousness: patient oriented x3 Resp: Effort & Inspection: normal respiratory effort GI: Inspection: No distended and Yes incision (clean ) Palpation (GI): Soft to palpation, Tenderness to palpation present (GI) (very mild incisional) and no guarding Skin: General skin exam: no rashes or lesions noted Neuro: General: patient oriented x3 DS: Data Data Completed and Pending Completed studies during hospitalization [Text1]: 01/11/24 11:00 Surgical [PTH] Routine Colon, right hemicolectomy: -No residual neuroendocrine tumor identified. -Fibrosis and focal histiocytic/foreign body giant cell reaction at previous appendectomy site. -Proximal, distal, and mesenteric margins are free of tumor. -Terminal ileum and colon with serosal fibrosis. -Nineteen (19) lymph nodes; negative for metastatic tumor. Procedures Resection of Appendix, Percutaneous Endoscopic Approach (12/04/23) Discharge Plan Discharge Anticipated Discharge Date/Time: 01/14/24 14:05 Patient Disposition: Home, Self-Care Discharge Diagnosis: s/p ALEXANDRE right colectomy Referrals: Jose Cruz Schmitz MD [Physician] - 1 Week Physician,None [Primary Care Provider] - 1 Week Discharge Medications: New oxycodone 5 mg tablet 5 mg PO Q4H PRN (Reason: pain (scale score 7-10)) Qty: 26 0RF Rx Instructions: Partial Fill upon patient request. Continued dextroamphetamine-amphetamine 15 mg tablet 2 tab PO DAILY fluoxetine 20 mg capsule 40 mg PO DAILY Discharge Orders: Discharge Order (Routine); Ordered 01/14/24 Ordered By: Kait Knowles Diet: Advance to usual diet Activity on Discharge: No heavy lifting Stand Alone Forms: Patient Portal Discharge page Print Language: Citizen Of [place] Activity Restrictions/Additional Instructions: If the incision area is tender, you may apply an ice pack for short intervals (No more than 20 minutes on, followed by at least 20 minutes off). Do not apply heat. Do not use creams, lotions, or topical antibiotics. Ok to shower. No tub bath or swimming. You have steri strips (small white cloth strips) covering your incision- these will fall off ~1 week. No heavy lifting (>10lbs) or strenuous activity! Take Tylenol Extra-strength 1-2 tabs every 6 hours for the first one-two days, then as needed. Oxycodone every 6-8 hours as needed for pain. Colace 100 mg every day as needed for constipation. Follow up in office with Dr. Schmitz in 1 week. ([phone]) Call Your Doctor If: -Your temperature exceeds 101.5? F -You experience excessive pain or swelling -You have an unexpected reaction to medication -You have excessive bleeding -You experience continued vomiting/nausea -Your incision begins to separate -Your incision shows signs of infection such as increased redness, swelling, excessive pain, drainage (light blood or clear fluid is normal) or heat Care Plan Goals: Return to baseline health and resume normal activities following recovery period. Health Concerns: carcinoid tumor of appendix Plan of Treatment: s/p ALEXANDRE right colectomy pain control f/u in office in 1 week Assessment: Doing well post op. Discharge Date/Time: 01/14/24 10:27
== END 2024-01-14 10:27 | disposition home or self-care (01) | DRG 231 ==
LOC: HO.SSSA 07:54 → HO.S3 13:57
PROVIDERS: Nurse Practitioner; Admitting Provider Surgery; Visit Provider Surgery
PROC: 0DTE0ZZ Resection of Large Intestine, Open Approach (ICD-10-PCS; principal; 2024-01-11 08:30)
DX: D3A.020 Benign carcinoid tumor of the appendix (principal); I95.9 Hypotension, unspecified; G89.18 Other acute postprocedural pain; R00.1 Bradycardia, unspecified; Z79.899 Other long term (current) drug therapy
CPT/HCPCS: 36415; 81025; 85025; 86850; 86900; 86901; 88309; 93005; C1758; J0131; J1100; J1170; J1836; J2250; J2270; J2405; J2704; J2795; J3010

== ENCOUNTER → 2024-01-11 07:49 | Outpatient (BNV) | payer BC, SELFPAY | PROVIDERS: Admitting Provider Surgery; Visit Provider Surgery | DX: C7A.020 Malignant carcinoid tumor of the appendix (principal) | CPT/HCPCS: 44204; 99024 ==

== ENCOUNTER 2024-01-21 11:39 | Outpatient (AMB) | payer BC, SELFPAY ==
--- NOTE | 2024-01-21 11:42 | A.OFFVIS_ITS ---
Vital Signs 3 01/21/24 11:49 Height 5 ft 4 in Weight 136 lb 2 oz BMI 23.4 BP 112/60 Blood Pressure Location Lt brachial Position Sitting Pulse 65 Intake Visit Reasons: S/P Rt colectomy Intake Note: Patient is seen in office for post op assessment post laparoscopic sigmoid colectomy. Pt c/o: sensitive and minimal pain in the incision, denies redness, discharge or other concerns sx:01/11/24 [employer] Required: No Accompanied by: Self / Same As Patient Allergies cefaclor [From [facility]] Allergy (Severe, Verified 01/21/24 11:49) HIVES HPI Comments Details: 43-year-old female patient recently diagnosed with carcinoid of the appendix measuring 2.1 cm, now returning 1 week following a hand assisted laparoscopic right colectomy. Pathology revealed no evidence of residual disease and 0 of 19 nodes with metastatic disease. Patient reports feeling much improved with minimal to no abdominal pain. She is eating well and reports normal bowel movements. She denies fever, chills, nausea or vomiting. [facility] Medical History Elevated cholesterol Benign neoplasm of pituitary gland Anxiety Depression Carcinoid tumor of appendix Acute appendicitis C. difficile colitis IBS (irritable bowel syndrome) Sigmoid volvulus Surgical History History of colectomy (01/11/24) Hx of laparoscopy H/O colonoscopy History of laparoscopic appendectomy (12/05/23) S/P colon resection Social History Household Members: Family Household Members Other:: minor children Housing: House Are you a primary toddler caregiver to a significant other at home: Yes Do you presently have visiting nurse or other home services: No Patient Tobacco Use Status: Never used Tobacco Second Hand Smoke Exposure: No service: No Physical Exam Vital Signs: Last Vital Signs Pulse 65 01/21/24 11:49 BP 112/60 01/21/24 11:49 BMI result Body Mass Index 23.4 Const General: no acute distress Nutritional Appearance: well nourished Resp Effort & Inspection: normal respiratory effort GI Other: Soft and nondistended, incision clean, dry, and intact without redness or discharge. No hernia palpable. Abdomen image: 2 1. 2. 3. Extrem General: Yes no clubbing, cyanosis or edema Assessment & Plan Assessment & Plan (1) Carcinoid tumor of appendix: Code(s): D3A.020 - Benign carcinoid tumor of the appendix Category: Medical Qualifiers: Carcinoid tumor malignancy status: malignant Qualified Code(s): C7A.020 - Malignant carcinoid tumor of the appendix Plan 43-year-old female patient recently diagnosed with carcinoid of the appendix, status post appendectomy followed by right colectomy. She tolerated the procedure well and her wounds are healing nicely. I recommended consultation with Hematology/Oncology for further management of the carcinoid tumor. I recommended a return visit proximally 1 month, sooner p.r.n.. She should continue to avoid lifting greater than 10 lb until that time. Orders: Referrals 2 Hematology & Oncology Referral C7A.020 - Malignant carcinoid tumor of the appendix Coding Level of Care Code Global (32268) Diagnoses Malignant carcinoid tumor of appendix C7A.020 Carcinoid tumor malignancy status: malignant
[2024-01-21 11:49] VITALS: BP 112/60; PULSE 65; BMI 23.4
== END 2024-01-21 11:54 | disposition home or self-care (01) ==
PROVIDERS: Visit Provider Surgery
DX: C7A.020 Malignant carcinoid tumor of the appendix (principal)
CPT/HCPCS: 99024

== ENCOUNTER → 2024-01-21 11:39 | Outpatient (BNVA) | payer BC, SELFPAY | PROVIDERS: Visit Provider Surgery ==

== ENCOUNTER → 2024-02-10 07:54 | Outpatient (BNV) | payer BC, SELFPAY | PROVIDERS: PCP Internal Medicine; Referring Provider Surgery; Visit Provider Internal Medicine | DX: C7A.8 Other malignant neuroendocrine tumors (principal) | CPT/HCPCS: 99205 ==

== ENCOUNTER 2024-02-23 10:12 | Outpatient (AMB) | payer BC, SELFPAY ==
--- NOTE | 2024-02-23 10:14 | A.OFFVIS_ITS ---
Vital Signs 02/23/24 10:18 Height 5 ft 4 in Weight 136 lb BMI 23.3 BP 122/71 Blood Pressure Location Lt brachial Position Sitting Pulse 58 Intake Visit Reasons: 1 mth S/P Rt colectomy Intake Note: Patient is seen in office for one month follow up visit, post right colectomy. 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 Pathology revealed no evidence of residual disease and 0 of 19 nodes with metastatic disease. She reports 1 episode of cramping in the right lower quadrant which subsequently resolved. She is moving her bowels regularly without any bleeding. She was evaluated by Dr. Canales in his undergoing some additional testing including urine testing. She denies fever, chills, nausea or vomiting. [facility] Medical History Elevated cholesterol Benign neoplasm of pituitary gland Anxiety Depression Carcinoid tumor of appendix Acute appendicitis C. difficile colitis IBS (irritable bowel syndrome) Sigmoid volvulus Surgical History History of colectomy (01/11/24) Hx of laparoscopy H/O colonoscopy History of laparoscopic appendectomy (12/05/23) S/P colon resection Family History (Updated 02/10/24 @ 08:07 by Isabelle Hager) Maternal Aunt Breast cancer Maternal Uncle Pancreatic cancer Social History (Updated 02/10/24 @ 08:07 by Isabelle Hager) Household Members: Family Household Members Other:: minor children Housing: House Are you a primary medicare contact specialist to a significant other at home: Yes Do you presently have visiting nurse or other home services: No Patient Tobacco Use Status: Never used Tobacco Second Hand Smoke Exposure: No service: No Current occupational status: employed Physical Exam Const General: no acute distress Nutritional Appearance: well nourished Resp Effort & Inspection: normal respiratory effort GI Other: Soft and nondistended, incision clean, dry, and intact without redness or discharge. No hernia palpable. Extrem General: Yes no clubbing, cyanosis or edema Assessment & Plan Assessment & Plan (1) Carcinoid tumor of appendix: Code(s): D3A.020 - Benign carcinoid tumor of the appendix Category: Medical Qualifiers: Carcinoid tumor malignancy status: malignant Qualified Code(s): C7A.020 - Malignant carcinoid tumor of the appendix Plan 43-year-old female patient recently diagnosed with carcinoid of the appendix, status post appendectomy followed by right colectomy on 01/11/2024. She tolerated the procedure well and her wounds are healing nicely. She will continue to follow up with Hematology/Oncology for further management. She should follow up in our office as needed. She may resume normal activity without restrictions. Coding Level of Care Code Global (30947) Diagnoses Malignant carcinoid tumor of appendix C7A.020 Carcinoid tumor malignancy status: malignant
[2024-02-23 10:18] VITALS: BP 122/71; PULSE 58; BMI 23.3
== END 2024-02-23 10:29 | disposition home or self-care (01) ==
PROVIDERS: PCP Radiology Vascular & Interventional Radiology; Visit Provider Surgery
DX: C7A.020 Malignant carcinoid tumor of the appendix (principal)
CPT/HCPCS: 99024

== ENCOUNTER → 2024-02-23 10:12 | Outpatient (BNVA) | payer BC, SELFPAY | PROVIDERS: PCP Radiology Vascular & Interventional Radiology; Visit Provider Surgery ==

== ENCOUNTER 2024-02-23 13:43 | Outpatient (REF) | payer BC, SELFPAY ==
[2024-03-05 12:30] LABS: Hydroindolacetic Acid,5- 1.3 mg/24 h (< OR = 6.0); Total Volume 1775 mL
== END 2024-02-23 13:44 | disposition home or self-care (01) ==
LOC: HO.LNP 13:43
PROVIDERS: Visit Provider Internal Medicine
DX: C18.9 Malignant neoplasm of colon, unspecified (principal)
CPT/HCPCS: 81050; 83497